=== PATIENT | male | born 2000 | race Caucasian/White ===

== ENCOUNTER 2024-11-16 15:48 | Day surgery (SDC) | payer OTHER, SELFPAY ==
--- NOTE | 2024-11-16 | PATH_ITS ---
[facility] Accession Number: [id number] No. of containers..02 Tissue . 01 Material submitted: . PART A: rectum - SKIN TAG, RECTUM POSTERIOR PART B: rectum - SKIN TAG, RECTUM ANTERIOR . 01 Diagnosis: A. RECTUM, POSTERIOR, SKIN TAG, EXCISION: Fibroepithelial polyp with prominent foreign body-type granulomatous inflammation; please see comment. Negative for dysplasia or malignancy. . B. RECTUM, ANTERIOR, SKIN TAG, EXCISION: Fibroepithelial polyp with prominent foreign body-type granulomatous inflammation; please see comment. Negative for dysplasia or malignancy. MRV 11/21/2024 1450 Local . 01 Comment: The clinical history of a perineal abscess is noted. The histologic findings in these biopsies raise a differential diagnosis including an inflammatory response associated with adjacent abscess, prior procedural site changes, infectious etiologies, reaction to foreign material, and, in the appropriate clinical setting, Crohn's disease. . 01 Electronically signed: . Beto Durham MD, PhD, Pathologist NPI- [id number] . 01 Gross description: . A. Received in formalin with two patient identifiers and 1. Skin tag rectal posterior, is a foss wrinkled fragment of skin measuring 2.1 x 1.2 x 1.4 cm. Inked blue, serially sectioned, and submitted entirely in A1-A2. B. Received in formalin with two patient identifiers and 2. Skin tag rectal anterior, is a foss roughened fragment of skin measuring 1.8 x 0.8 x 0.7 cm. Inked blue, serially sectioned, and submitted entirely in B1-B2. ([id number]) /MRV 11/17/2024 1734 Local . 01 Microscopic: . A. Sections are of a squamous fibroepithelial polyp with a prominent foreign body-type granulomatous inflammatory reaction. A CD68 immunohistochemical stain highlights the cells of interest, consistent with a histiocytic origin. GMS and AFB stains are negative for fungal organisms and acid-fast bacilli, respectively. All control stains show appropriate reactivity. . B. Sections are of a squamous fibroepithelial polyp with a prominent foreign body-type granulomatous inflammatory reaction. A CD68 immunohistochemical stain highlights the cells of interest, consistent with a histiocytic origin. GMS and AFB stains are negative for fungal organisms and acid-fast bacilli, respectively. All control stains show appropriate reactivity. . * This test was developed and the performance characteristics were validated by [employer]. It has not been cleared or approved by the U.S. Food and Drug Administration. . 01 Pathologist provided ICD-10: L91.8 . 01 CPT . 760221, 140395, L64592, 763534, 434937, 947556, 458327 Specimen Comment: A courtesy copy of this report has been sent to [facility] Performed at: [address] [address], [place], [place] [id number] MD Obed Parks MD Phone: [phone]
[2024-11-16 16:02] VITALS: BMI 31.2
[2024-11-16 16:06] VITALS: BP 137/71; PULSE 105; RESP 16; TEMP 37.2; O2SAT 97
[2024-11-16] MEDS: LACTATED RINGERS 1,000 ML 42 ML IV (16:15)
[2024-11-16] MEDS: BUPIVACAINE 0.5% W/ EPI (PF) 30 ML VIAL INJ (17:32)
[2024-11-16] MEDS: BUPIVACAINE LIPOSOME 266 MG/20 ML VIAL INJ (17:32)
--- NOTE | 2024-11-16 17:54 | PM.OP.1 ---
Operative Date/Time/Diagnoses Date of procedure: 11/16/24 Time of procedure: 17:54 Pre-op diagnosis: Supralevator abscess and fistula Post-op diagnosis: same (Posterior anal fissure, left supralevator abscess and fistula, anterior superficial fistulas x2) Procedure & Clinicians Procedure: 1. Cautery of posterior anal fissure 2. Fistulotomy of supralevator, extra sphincteric left-sided anal fistula and supralevator abscess, with placement of seton; fistulectomy of multiple anterior fistulas Same procedure as scheduled: Yes Indications: Perirectal abscess, fistulas and fissure, presenting with pain and tachycardia Surgeon: Kapil Escobar Click Yes if Unassisted: Yes Anesthesia Type: General Operative Notes Findings: 1. Posterior anal fissure 2. Anterior superficial fistulas x2 3. Left-sided supralevator an extra sphincteric fistula Closure Type: not applicable Specimen(s): other (1. Posterior skin tag 2. Anterior skin tag 3. Abscess for culture) Applied: drain(s) (Seton) Estimated Blood Loss (mL): 25 Blood products transfused: none Procedure in detail: Patient was brought to the operating room suite emergently from the office due to pain, redness and inability to perform an exam in the office. Consent was obtained. General anesthesia was induced. Patient was placed in the prone jayla-knife position. The gluteus were taped apart. A total of 50 mL of mixture of Marcaine and Exparel were used to perform perianal block and field block. Serial lubricated anoscope was inserted and the anus was inspected. Bovie electrocautery was used to remove a posterior anal fissure and residual sentinel tag. The base of the fissure was cauterized for hemostasis. A lacrimal duct probe was placed through the left-sided fistula which entered into a large abscess cavity that extended superior levator, but had a secondary opening in the rectum above the sphincters. A vessel loop was used as a seton passed through the rectum and through the fistula tract. The fistula tract was cauterized. The abscess cavity was copiously irrigated. The seton was tied into place with a silk suture. Anterior fistulas were probed and found to be superficial, not extending to the sphincters. Bovie electrocautery was used to just excise these 2 fistula tracts. The cavity was cauterized with Bovie electrocautery. The wounds and rectum was irrigated. A Gel-Foam was placed in the anus. Patient woke was extubated transferred to PACU in stable condition for anticipated same-day discharge. Complications: none Post-operative Condition: stable Disposition: PACU
[2024-11-16 17:56] VITALS: BP 104/67; PULSE 106; RESP 16; TEMP 37.6; O2SAT 97
[2024-11-16 18:01] VITALS: BP 131/92; PULSE 102; RESP 15; O2SAT 98
[2024-11-16 18:06] VITALS: BP 130/90; PULSE 102; RESP 14; O2SAT 99
[2024-11-16 18:11] VITALS: BP 138/90; PULSE 97; RESP 20; TEMP 37.3; O2SAT 96
[2024-11-16] MEDS: OXYCODONE IR 5 MG TABLET PO (18:13)
[2024-11-16 18:18] VITALS: BP 130/92; PULSE 92; RESP 18; TEMP 37.3; O2SAT 97
== END 2024-11-16 18:33 | disposition home or self-care (01) ==
PROVIDERS: Surgery; PCP Family Medicine; Referring Provider Surgery; Visit Provider Surgery
PROC: (CPT 45990; principal; 2024-11-16 16:30)
DX: K61.5 Supralevator abscess (principal); K60.30 Anal fistula, unspecified; K60.2 Anal fissure, unspecified; K64.4 Residual hemorrhoidal skin tags; K62.1 Rectal polyp
CPT/HCPCS: 46280; 87070; 87077; 87186; 87205; 99214; J0666; J1100; J1885; J2405; J2704; J3010

== ENCOUNTER 2024-11-25 11:46 | Emergency (ER) | payer OTHER, SELFPAY ==
[2024-11-25] VITALS (13 sets, daily range): BP systolic 103–112; BP diastolic 51–69; PULSE 71–118; RESP 11–29; TEMP 36.6; O2SAT 92–100; BMI 31.2
--- NOTE | 2024-11-25 11:58 | ED_ITS ---
HPI - Abdominal Pain General Chief Complaint: Abdominal Pain Stated Complaint: abdominal pain Time Seen by Provider: 11/25/24 11:57 History of Present Illness HPI narrative: 23-year-old male history of pilonidal cysts status post surgical correction with banding on 11/16/2024, comes into the ED from home for evaluation of abdominal pain nausea vomiting diarrhea ongoing persistent for several months, states that this was happening prior to his surgery, states it has been healing appropriately, he has not having any issues with this, he comes in today for his abdominal pain has been taking amoxicillin daily for the past month, denies any recent travel no headache visual disturbances chest pain shortness breath fever chills or any other GI/ symptoms at this time. Related Data Home Medications Medication Instructions Recorded Confirmed amoxicillin 500 mg tablet mg PO 11/25/24 Previous Rx's Medication Instructions Recorded docusate calcium 240 mg capsule 240 mg PO BID #60 caps 11/16/24 ondansetron HCl 8 mg tablet 8 mg PO Q8H PRN nausea and 11/16/24 vomiting #30 tabs oxycodone 5 mg tablet 5 mg PO Q6H PRN severe pain (scale 11/16/24 score 7-10) #14 tabs polyethylene glycol 3350 17 17 g PO DAILY #238 grams 11/16/24 gram/dose oral powder (ClearLax) tizanidine 4 mg capsule 4 mg PO Q8H PRN rectal discomfort 11/16/24 #90 caps aluminum-mag hydroxide-simethicone 10 ml PO TID 5 days #150 mL 11/25/24 200 mg-200 mg-20 mg/5 mL oral susp (Maalox Advanced) Allergies Allergy/AdvReac Type Severity Reaction Status Date / Time No Known Drug Allergies Allergy Unverified 11/16/24 15:30 Review of Systems Review of Systems Narrative: General: Denies fever, chills, weight loss HEENT: Denies headache, eye drainage, eye irritation, head trauma, sore throat, voice change Cardiovascular: Denies any chest pain, palpitations, shortness of breath, tachycardia Respiratory: Denies any shortness of breath, cough, wheeze, stridor GI/: Positive abdominal pain, nausea, vomiting, diarrhea, denies bright red blood per rectum, melanotic stools, urinary frequency, urinary retention, dysuria, hematuria MSK: Denies any joint pain, muscle pains, swelling Skin: Denies any rashes, lesions, discoloration Neuro: Denies any headache, lightheadedness, dizziness, fainting, weakness Psych: Denies SI/HI Patient History Medical History (Updated 11/25/24 @ 15:45 by Corby Akers DO) Supralevator abscess Social History marital status: unmarried,single details: Pt. lives with his parents. household members: family occupational status: unemployed Smoking Status: Never smoker alcohol intake: never Smoking Status: Never smoker Exam Narrative Exam Narrative: General: Cooperative, comfortable, well-developed, not in acute distress HEENT: Normocephalic, atraumatic, PERRLA, normal sclera, eyelids normal, Neck: Active full range of motion, atraumatic Chest: Normal to inspection, negative crepitus, no overlying erythema ecchymosis Respiratory: Normal respiratory effort, not in acute respiratory distress, clear to auscultation bilaterally negative cough, wheeze, tachypnea, rhonchi, rales Cardiology: Regular rate rhythm negative gallop, murmur, rubs GI/: Normal to inspection, soft, nonrigid, mild tenderness to palpation diffuse, rectal exam performed, 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 MSK: Full range of active range of motion of all 4 extremities, atraumatic Skin: No rashes lesions noted Neuro: Alert awake oriented x3, moves all 4 extremities spontaneously, cranial nerves intact, able to answer all questions appropriately follows commands appropriately Psych: Cooperative, negative suicidal or homicidal ideations Initial Vital Signs Initial Vital Signs: Vital Signs Temperature 98 F 11/25/24 11:57 Pulse Rate 118 H 11/25/24 11:57 Respiratory Rate 18 11/25/24 11:57 Blood Pressure 112/69 11/25/24 11:57 Pulse Oximetry 99 11/25/24 11:57 Oxygen Delivery Method Room Air 11/25/24 11:57 Course Orders Ordered: ED Orders 11/25/24 12:00 Complete Blood Count AUTO DIFF Stat Comprehensive Metabolic Panel Stat Lipase Stat MAG [Magnesium] Stat 11/25/24 12:01 GI Panel (Film Array) Stat 11/25/24 12:02 CT abdomen pelvis w con Stat Discontinued Medications Morphine Sulfate (Morphine 4 Mg/Ml Inj) 4 mg IV NOW ONE Stop: 11/25/24 12:02 Last Admin: 11/25/24 12:22 Dose: 4 mg Documented By: RB Ondansetron HCl (Ondansetron 4 Mg/2 Ml Inj) 4 mg IV NOW ONE Stop: 11/25/24 12:02 Last Admin: 11/25/24 12:21 Dose: 4 mg Documented By: RB Vital Signs Vital signs: Vital Signs - 8 hr 11/25/24 11:57 11/25/24 12:16 11/25/24 12:37 Temperature 98 F Pulse Rate 118 H 85 85 Respiratory Rate 18 11 L 29 H Blood Pressure 112/69 Pulse Oximetry 99 97 99 Oxygen Delivery Method Room Air 11/25/24 13:00 11/25/24 13:30 11/25/24 13:40 Temperature Pulse Rate 80 76 Respiratory Rate 18 Blood Pressure 109/55 L Pulse Oximetry 96 98 Oxygen Delivery Method 11/25/24 13:40 11/25/24 14:00 11/25/24 14:00 Temperature Pulse Rate 81 77 Respiratory Rate 26 H Blood Pressure 108/55 L Pulse Oximetry 99 99 Oxygen Delivery Method 11/25/24 14:30 11/25/24 14:30 11/25/24 15:21 Temperature Pulse Rate 71 Respiratory Rate 20 22 Blood Pressure 107/51 L Pulse Oximetry 98 Oxygen Delivery Method 11/25/24 15:22 11/25/24 15:22 Temperature Pulse Rate 83 Respiratory Rate 11 L Blood Pressure 108/59 L Pulse Oximetry 92 Oxygen Delivery Method MDM - Abdominal Pain Differential Diagnosis Differential diagnosis: Likely constipation, diverticulitis, gastroenteritis, small bowel obstruction and other (Electrolyte abnormality, urinary tract infection, C diff) Lab Data 11/25/24 12:00 11/25/24 12:00 Labs: Lab Results 11/25/24 Range/Units 12:00 WBC 15.1 H (4.5-11.0) X10^3/uL RBC 4.38 L (4.5-5.9) X10^6/uL Hgb 12.1 L (13.5-17.5) g/dL Hct 37.1 L (41-53) % MCV 84.6 (80-100) fL MCH 27.6 (26-34) PG MCHC 32.6 (30-36) % RDW 13.9 (11.6-14.8) % Plt Count 467 H (150-400) X10^3/uL Neut % (Auto) 78.7 H (50-75) % Lymph % (Auto) 8.5 L (25-40) % [place] % (Auto) 10.0 (3-14) % Eos % (Auto) 2.3 (2-4) % Baso % (Auto) 0.5 (0-2) % Neut # (Auto) 24934 H (8168-3816) /uL Lymph # (Auto) 1300 (7987-6623) /uL [place] # (Auto) 1500 H (0-900) /uL Eos # (Auto) 300 (0-450) /uL Baso # (Auto) 100 (0-100) /uL Sodium 138 (137-145) mmol/L Potassium 3.7 (3.4-5.1) mmol/L Chloride 103 (98-107) mmol/L Carbon Dioxide 26 (22-32) mmol/L BUN 11 (9-20) mg/dL Creatinine 1.27 H (0.66-1.25) mg/dL Estimated GFR > 60 (>60) mL/min BUN/Creatinine Ratio 8.7 (6-22) Glucose 110 H (70-100) mg/dL Calcium 9.6 (8.4-10.2) mg/dL Magnesium 1.9 (1.6-2.3) mg/dL Total Bilirubin 0.9 (0.2-1.3) mg/dL AST 32 (17-59) IU/L ALT 38 (<50) IU/L Alkaline Phosphatase 119 (38-126) U/L Total Protein 8.2 (6.3-8.2) g/dL Albumin 4.2 (3.5-5.0) g/dL Globulin 4.0 (1.7-4.1) g/dL Albumin/Globulin Ratio 1.1 (1.0-2.8) Lipase 72 (23-300) U/L Point of care testing: Urine Dip Bedside Urine Glucose Negative Bedside Urine Bilirubin - Negative Bedside Urine Ketone - Negative Urine Specific [place] 1.000 Bedside Urine Occult Blood - Negative Bedside Urine pH 6.5 Bedside Urine Protein - Negative Bedside Urine Urobilinogen 0.2 Bedside Urine Nitrite - Negative Bedside Urine Leukocytes - Negative Esterase Imaging Data CT scan - abdomen/pelvis: Radiologist's Impression: [address] [address] [address] Scan Report Signed Patient: Joel Kauffman MR#: [id number] : 2000 Acct:[id number] Age/Sex: 23 / M Date of Service: 11/25/24 Loc: ED Accession Number: [id number] Procedure: CT abdomen pelvis w con Ordering Provider: Corby Akers D.O. PROCEDURE: CT ABDOMEN PELVIS W CON INDICATIONS: Lower abdominal pain TECHNIQUE: After the administration of intravenous contrast, axial sections acquired from the lung bases to the pubic symphysis. Coronal and sagittal reformats were performed. For radiation dose reduction, the following was used: automated exposure control, adjustment of mA and/or kV according to patient size. COMPARISON: [facility], CT, CT PELVIS WITH CONTRAST, 10/23/2024, 12:39. FINDINGS: Image quality: Diagnostic. Lower Chest: No significant findings. ABDOMEN: Liver: No solid mass. Gallbladder: No radiopaque gallstones or wall thickening. Biliary ducts: No biliary dilation. Pancreas: No ductal dilation. Spleen: Size is within normal limits. Adrenal Glands: No adrenal nodules. Kidneys and Ureters: No hydronephrosis. No solid mass. No complex renal cystic lesion which requires follow up. Stomach and Bowel: Normal colonic caliber, without significant wall thickening. The appendix is dilated and inflamed with periappendiceal edema suspicious for acute appendicitis, similar prior exam. Additionally, there is wall thickening and pericolonic edema involving the descending and sigmoid colon, increased from the prior exam. There is been interval Seton treatment of a left perianal fistula with suture loop in appropriate position. Peritoneum: No abscess. No free air. Ventral Wall: No significant ventral hernia. Abdominal Nodes: No retroperitoneal or mesenteric adenopathy by size criteria. Vessels: Aorta and inferior vena cava are normal in size. PELVIS: Pelvic Organs: Unremarkable. Bladder: No bladder wall thickening, accounting for underdistention. Pelvic Nodes: No enlarged lymph nodes. Miscellaneous: No inguinal hernias are seen. Bones: No aggressive osseous abnormality. IMPRESSION: Interval seton treatment of left perianal fistula in good position Probable colitis involves the descending and sigmoid colon, slightly increased from prior exam. Persistent appendiceal prominence with periappendiceal edema suspicious for appendicitis, but nevertheless unchanged from the prior MDM Narrative Medical decision making narrative: 23-year-old male history of pilonidal cyst status post rectal surgery correction on 11/16/2024 presents to the emergency department for persistent lower abdominal cramping nausea and vomiting diarrhea since May of 2024. Patient is stating that he is healing well from his surgery but he is having difficulty tolerating the pain from both his rectum and his abdomen. He states his he has been on amoxicillin for the past month daily. Patient had lab work imaging performed here in the emergency department. Patient did have mild leukocytosis at 15, however patient recently had surgery currently on antibiotics having abdominal pain nausea vomiting diarrhea most likely reactive remainder of lab work unremarkable. CT scan showing Interval seton treatment of left perianal fistula in good position, also noted to have persistentappendiceal prominence with periappendiceal edema suspicious for appendicitis,, patient without any tenderness to palpation of the right lower quadrant, did have a discussion with general surgeon Dr. Barlow, who agrees patient most likely not an acute appendicitis given patient's symptoms ongoing persistent for so long as well as CT scan unchanged from prior. Patient was unable to provide stool sample here to test C diff, patient elected to follow up with PCP to have this checked, patient's symptoms more likely colitis, in nature, patient already on Augmentin instructed follow up with his general surgeon for his scheduled appointment as well as GI and PCP in outpatient setting strict return precautions were given he verbalized understanding of this and agrees to being discharged home with outpatient follow up Discharge Plan Departure Patient Disposition: Home Clinical Impression: Colitis Instructions: DI for Colitis Activity Restrictions/Additional Instructions: Please follow up with primary care doctor so that they may order A C diff test Please follow up with your general surgeon for your scheduled appointment Please read the discharge instructions sheet carefully and bring all papers to all doctor follow-up visits, as it may contain information that your doctor may want to see. Disease processes change and evolve, if your symptoms worsen or if you develop any new symptoms that are concerning to you please return for evaluation. Your evaluation today does not show any evidence of any life- threatening/serious illnesses requiring admission to the hospital or surgery. Please follow-up with your doctor for re-evaluation in approximately 1 day. Seek immediate medical attention for any worrisome symptoms. *If you do not have a primary care provider please contact the [facility] Resource line at [phone]. They will ask some questions about your medical history and help get you set up with a doctor in the community. Prescriptions: New alum-mag hydroxide-simeth [Maalox Advanced] 200-200-20 mg/5 mL suspension 10 ml PO TID 5 Days Qty: 150 0RF Rx Instructions: administer between meals and at bedtime No Action tizanidine 4 mg capsule 4 mg PO Q8H PRN (Reason: rectal discomfort) Qty: 90 0RF Rx Instructions: may cut in half if you feel lightheaded or dizzy oxycodone 5 mg tablet 5 mg PO Q6H PRN (Reason: severe pain (scale score 7-10)) Qty: 14 0RF amoxicillin 500 mg Tablet PO ondansetron HCl 8 mg tablet 8 mg PO Q8H PRN (Reason: nausea and vomiting) Qty: 30 0RF docusate calcium 240 mg capsule 240 mg PO BID Qty: 60 0RF polyethylene glycol 3350 [ClearLax] 17 gram/dose powder 17 g PO DAILY Qty: 238 0RF Referrals: Alan Trevino MD [Primary Care Provider] - Stand Alone Forms: Patient Portal/API/Survey
--- NOTE | 2024-11-25 12:02 | DI.CT.S_ITS ---
PROCEDURE: CT ABDOMEN PELVIS W CON INDICATIONS: Lower abdominal pain TECHNIQUE: After the administration of intravenous contrast, axial sections acquired from the lung bases to the pubic symphysis. Coronal and sagittal reformats were performed. For radiation dose reduction, the following was used: automated exposure control, adjustment of mA and/or kV according to patient size. COMPARISON: [facility], CT, CT PELVIS WITH CONTRAST, 10/23/2024, 12:39. FINDINGS: Image quality: Diagnostic. Lower Chest: No significant findings. ABDOMEN: Liver: No solid mass. Gallbladder: No radiopaque gallstones or wall thickening. Biliary ducts: No biliary dilation. Pancreas: No ductal dilation. Spleen: Size is within normal limits. Adrenal Glands: No adrenal nodules. Kidneys and Ureters: No hydronephrosis. No solid mass. No complex renal cystic lesion which requires follow up. Stomach and Bowel: Normal colonic caliber, without significant wall thickening. The appendix is dilated and inflamed with periappendiceal edema suspicious for acute appendicitis, similar prior exam. Additionally, there is wall thickening and pericolonic edema involving the descending and sigmoid colon, increased from the prior exam. There is been interval Seton treatment of a left perianal fistula with suture loop in appropriate position. Peritoneum: No abscess. No free air. Ventral Wall: No significant ventral hernia. Abdominal Nodes: No retroperitoneal or mesenteric adenopathy by size criteria. Vessels: Aorta and inferior vena cava are normal in size. PELVIS: Pelvic Organs: Unremarkable. Bladder: No bladder wall thickening, accounting for underdistention. Pelvic Nodes: No enlarged lymph nodes. Miscellaneous: No inguinal hernias are seen. Bones: No aggressive osseous abnormality. IMPRESSION: Interval seton treatment of left perianal fistula in good position Probable colitis involves the descending and sigmoid colon, slightly increased from prior exam. Persistent appendiceal prominence with periappendiceal edema suspicious for appendicitis, but nevertheless unchanged from the prior Approved by: Fidel Hoskins M.D. on 11/25/2024 at 12:43
[2024-11-25 12:12] LABS: Add Manual Diff / Slide Review NO; Basophils Absolute Auto 100 /uL (0-100); Basophils Percent Auto 0.5 % (0-2); Eosinophils Absolute Auto 300 /uL (0-450); Eosinophils Percent Auto 2.3 % (2-4); Hematocrit 37.1 % (41-53); Hemoglobin 12.1 g/dL (13.5-17.5); Lymphocytes Absolute Auto 1300 /uL (1100-4500); Lymphocytes Percent Auto 8.5 % (25-40); Mean Corpuscular HGB Conc 32.6 % (30-36); Mean Corpuscular Hemoglobin 27.6 PG (26-34); Mean Corpuscular Volume 84.6 fL (80-100); Monocytes Absolute Auto 1500 /uL (0-900); Neutrophils Absolute Auto 11900 /uL (1500-7000); Neutrophils Percent Auto 78.7 % (50-75); Platelet Count 467 X10^3/uL (150-400); Red Blood Cell Count 4.38 X10^6/uL (4.5-5.9); Red Cell Distribution Width 13.9 % (11.6-14.8); White Blood Cell Count 15.1 X10^3/uL (4.5-11.0)
[2024-11-25] MEDS: ONDANSETRON 4 MG/2 ML INJ IV (12:21)
[2024-11-25] MEDS: MORPHINE 4 MG/ML INJ IV (12:22)
[2024-11-25 12:33] LABS: Alanine Aminotransferase 38 IU/L (<50); Albumin 4.2 g/dL (3.5-5.0); Albumin Globulin Ratio 1.1 (1.0-2.8); Alkaline Phosphatase 119 U/L (38-126); Aspartate Aminotransferase 32 IU/L (17-59); BUN Creatinine Ratio 8.7 (6-22); Bilirubin Total 0.9 mg/dL (0.2-1.3); Blood Urea Nitrogen 11 mg/dL (9-20); Calcium 9.6 mg/dL (8.4-10.2); Carbon Dioxide 26 mmol/L (22-32); Chloride 103 mmol/L (98-107); Estimated Glomerular Filt Rate > 60 mL/min (>60); Glucose 110 mg/dL (70-100); HEMOLYSIS < 15 (0-50); Lipase 72 U/L (23-300); Magnesium 1.9 mg/dL (1.6-2.3); Potassium 3.7 mmol/L (3.4-5.1); Sodium 138 mmol/L (137-145); Total Protein 8.2 g/dL (6.3-8.2)
== END 2024-11-25 17:59 | disposition home or self-care (01) ==
PROVIDERS: Emergency Provider Student in an Organized Health Care Education/Training Program; PCP Family Medicine
DX: K52.9 Noninfective gastroenteritis and colitis, unspecified (principal); R11.2 Nausea with vomiting, unspecified
CPT/HCPCS: 36415; 74177; 80053; 81003; 83690; 83735; 85025; 96374; 96375; 99284; J2270; J2405; Q9967

== ENCOUNTER 2024-12-05 10:13 | Emergency (ER) | payer OTHER, SELFPAY ==
[2024-12-05] VITALS (20 sets, daily range): BP systolic 112–134; BP diastolic 61–85; PULSE 80–104; RESP 17–24; TEMP 37.5; O2SAT 96–100; BMI 29.8
--- NOTE | 2024-12-05 10:54 | EKG_ITS ---
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
--- NOTE | 2024-12-05 10:57 | DI.RAD.S_ITS ---
PROCEDURE: XR CHEST 1V INDICATIONS: chest pain TECHNIQUE: One view of the chest was acquired. COMPARISON: None. FINDINGS: Surgical changes and devices: None. Lungs and pleura: Lungs are clear. No pleural effusions or pneumothorax. Mediastinum: Mediastinal contours appear normal. Heart size is normal. Bones and chest wall: No suspicious bony lesions. Overlying soft tissues appear unremarkable. IMPRESSION: No acute pulmonary process. Dictated by: Ct Pina M.D. on 12/05/2024 at 11:07 Approved by: Ct Pina M.D. on 12/05/2024 at 11:10
[2024-12-05 11:15] LABS: Add Manual Diff / Slide Review NO; Basophils Absolute Auto 100 /uL (0-100); Basophils Percent Auto 0.5 % (0-2); Eosinophils Absolute Auto 100 /uL (0-450); Eosinophils Percent Auto 0.7 % (2-4); Hematocrit 34.6 % (41-53); Hemoglobin 11.4 g/dL (13.5-17.5); Lymphocytes Absolute Auto 1100 /uL (1100-4500); Lymphocytes Percent Auto 8.3 % (25-40); Mean Corpuscular Hemoglobin 27.5 PG (26-34); Mean Corpuscular Volume 83.2 fL (80-100); Monocytes Absolute Auto 1700 /uL (0-900); Neutrophils Absolute Auto 10400 /uL (1500-7000); Neutrophils Percent Auto 77.5 % (50-75); Platelet Count 497 X10^3/uL (150-400); Red Blood Cell Count 4.16 X10^6/uL (4.5-5.9); Red Cell Distribution Width 13.8 % (11.6-14.8); White Blood Cell Count 13.4 X10^3/uL (4.5-11.0)
[2024-12-05 11:25] LABS: INR 1.4 (0.9-1.3); Prothrombin Time 15.8 SECONDS (9.4-12.5)
[2024-12-05 11:28] LABS: PTT Partial Thromboplastin Tim 33 SECONDS (25.1-36.5)
[2024-12-05 11:47] LABS: Alanine Aminotransferase 53 IU/L (<50); Albumin 3.9 g/dL (3.5-5.0); Albumin Globulin Ratio 1.1 (1.0-2.8); Alkaline Phosphatase 121 U/L (38-126); Aspartate Aminotransferase 40 IU/L (17-59); BUN Creatinine Ratio 8.3 (6-22); Bilirubin Total 0.8 mg/dL (0.2-1.3); Blood Urea Nitrogen 10 mg/dL (9-20); Calcium 9.2 mg/dL (8.4-10.2); Carbon Dioxide 23 mmol/L (22-32); Chloride 100 mmol/L (98-107); Creatine Kinase 43 U/L (55-170); Estimated Glomerular Filt Rate > 60 mL/min (>60); Globulin 3.7 g/dL (1.7-4.1); Glucose 106 mg/dL (70-100); HEMOLYSIS < 15 (0-50); Lipase 46 U/L (23-300); Magnesium 1.9 mg/dL (1.6-2.3); Potassium 3.8 mmol/L (3.4-5.1); Sodium 136 mmol/L (137-145); Total Protein 7.6 g/dL (6.3-8.2)
[2024-12-05 11:59] LABS: Troponin I < 0.012 ng/mL (0.01-0.034)
[2024-12-05 12:12] LABS: NT-proBNP (BNP-Adult 18+) 38 pg/mL (<125)
[2024-12-05] MEDS: KETOROLAC 30 MG/ML VIAL 15 MG IV (15:36)
[2024-12-05] MEDS: SODIUM CHLORIDE 0.9% 1,000 ML 1000 ML IV (15:36)
--- NOTE | 2024-12-05 15:46 | DI.CT.S_ITS ---
PROCEDURE: CT ABDOMEN PELVIS W CON INDICATIONS: + c diff, worsening abd pain TECHNIQUE: After the administration of intravenous contrast, axial sections acquired from the lung bases to the pubic symphysis. Coronal and sagittal reformats were performed. For radiation dose reduction, the following was used: automated exposure control, adjustment of mA and/or kV according to patient size. COMPARISON: [facility], CT, CT ABDOMEN PELVIS W CON, 11/25/2024, 12:23. FINDINGS: Image quality: Diagnostic. Lower Chest: Dependent atelectasis are seen in posterior aspect of bilateral lung bases. Heart size is normal, no pericardial effusion. ABDOMEN: Liver: No solid mass. Gallbladder: No radiopaque gallstones or wall thickening. Biliary ducts: No biliary dilation. Pancreas: No ductal dilation. Spleen: Size is within normal limits. Adrenal Glands: No adrenal nodules. Kidneys and Ureters: No hydronephrosis. No solid mass. No complex renal cystic lesion which requires follow up. Stomach and Bowel: Normal colonic caliber, without significant wall thickening. Appendix is slightly enlarged and measures 1 cm in diameter. There is mild appendiceal wall thickening and periappendiceal fat stranding concerning for early acute appendicitis best seen on series 4 image 51. No abscess collection. No extra luminal air to suggest perforation. Mild descending colon and sigmoid colon wall thickening with mild pericolonic fat stranding is seen particularly involving mid sigmoid colon concerning for colitis. Peritoneum: No abnormal intraperitoneal fluid. No free air. Ventral Wall: No significant ventral hernia. Abdominal Nodes: No retroperitoneal or mesenteric adenopathy by size criteria. Vessels: Aorta and inferior vena cava are normal in size. PELVIS: Pelvic Organs: Unremarkable. Bladder: No bladder wall thickening, accounting for underdistention. Pelvic Nodes: No enlarged lymph nodes. Miscellaneous: No inguinal hernias are seen. Bones: No aggressive osseous abnormality. IMPRESSION: 1. Finding is concerning for colitis involving sigmoid colon particularly involving mid sigmoid colon. 2. Finding is concerning for early developing acute appendicitis. No abscess collection. No peritoneal free air or free fluid. 3. No other area of abnormal bowel wall thickening. No evidence of bowel obstruction. Dictated by: Pascual Chang M.D. on 12/05/2024 at 16:34 Approved by: Pascual Chang M.D. on 12/05/2024 at 16:48
[2024-12-05 16:31] LABS: Troponin I 0.923 ng/mL (0.01-0.034)
--- NOTE | 2024-12-05 16:41 | EKG_ITS ---
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
[2024-12-05 17:20] LABS: Troponin I < 0.012 ng/mL (0.01-0.034)
--- NOTE | 2024-12-05 17:47 | PC.NURSE ---
Spoke w/ lab: repeated same sample and it was negative.
[2024-12-05] MEDS: PIPERACILLIN/TAZO 4.5 GM in SODIUM CHLORIDE 0.9% 100 ML IV (17:48)
--- NOTE | 2024-12-05 17:54 | PC.NURSE ---
Addendum entered by Tamie Bravo R.N. 12/05/24 17:57: Pt reported pain 05/03 on arrival. Original Note: Pt reports chest pain, sob, fatigue. pt states the chest pain happens when he moves around. Otherwise the pain goes across his lower abdomen. Pt reports diarrhea from c-diff for which he is being treated for. Pt states he also has a drain in his bottom from a cyst. Pt has follow up in a few days for this drain. Drain noted to have serous and serosanguineous fluid draining. Bandage replaced.
--- NOTE | 2024-12-05 17:59 | PM.CALLCOV.1 ---
Call Coverage Note Note Date of Patient Contact: 12/05/24 Time of Patient Contact: 18:00 Narrative of Care Provided: Patient had canceled last week's office visit with me. Patient went to ED for nausea. CT scan showes sigmoid colitis, appendicitis, and some air and fluid anterior to the seton. I am concerned about Crohn's disease. He is currently on PO Vanco for C. diff. I would like him to see a colon and rectal surgeon for further evaluation, as this seems to be too complex, and will likely require treatment beyond what we can offer here. D/W ER physician, that Cipro/Flagyl would be reasonable for the CT findings in the setting of C. diff following prolonged Augmentin prior to incision and drainage.
--- NOTE | 2024-12-05 18:33 | ED.CHESTPAIN ---
HPI - Chest Pain General Chief Complaint: Chest Pain Stated Complaint: per pt has c diff, N/V chest/abd pain, weak Time Seen by Provider: 12/05/24 15:16 History of Present Illness HPI narrative: 23-year-old male with recent courses of oral antibiotics usually Augmentin for perirectal abscess fistula, most recently was treated with surgical debridement by local [facility] general surgeon Dr. Escobar, was due to see Dr. Escobar in clinic recently but did not do so. Patient apparently had recent diagnosis of C diff infection, taking oral vancomycin course. Now with left lower quadrant more so than right lower quadrant discomfort since yesterday, anterior lower abdominal discomfort, different than his recent perirectal discomfort problems. No fevers or chills. Drain from surgical procedure with Dr. Escobar apparently still in place. Related Data Home Medications Medication Instructions Recorded Confirmed amoxicillin 500 mg tablet mg PO 11/25/24 Previous Rx's Medication Instructions Recorded docusate calcium 240 mg capsule 240 mg PO BID #60 caps 11/16/24 ondansetron HCl 8 mg tablet 8 mg PO Q8H PRN nausea and 11/16/24 vomiting #30 tabs oxycodone 5 mg tablet 5 mg PO Q6H PRN severe pain (scale 11/16/24 score 7-10) #14 tabs polyethylene glycol 3350 17 17 g PO DAILY #238 grams 11/16/24 gram/dose oral powder (ClearLax) tizanidine 4 mg capsule 4 mg PO Q8H PRN rectal discomfort 11/16/24 #90 caps loperamide 2 mg capsule 2 mg PO Q6H PRN loose stool #120 11/28/24 caps psyllium husk 3 gram/3 gram oral 17 g PO DAILY #340 grams 11/28/24 powder ciprofloxacin HCl 500 mg tablet 500 mg PO BID 10 days #20 tabs 12/05/24 metronidazole 500 mg tablet 500 mg PO TID #30 tabs 12/05/24 Allergies Allergy/AdvReac Type Severity Reaction Status Date / Time No Known Drug Allergies Allergy Unverified 11/16/24 15:30 Patient History Medical History (Updated 12/05/24 @ 18:56 by Cm Jin MD) Supralevator abscess Social History marital status: unmarried,single details: Pt. lives with his parents. household members: family occupational status: unemployed Smoking Status: Never smoker alcohol intake: never Smoking Status: Never smoker Exam Narrative Exam Narrative: GENERAL: Well-developed patient, in mild distress. HEAD: Atraumatic. Normocephalic. EYES: Pupils equal round and reactive. Extraocular motions intact. No scleral icterus. No injection or drainage. ENT: Nose without bleeding, purulent drainage. Throat without erythema, tonsillar hypertrophy or exudate. Airway patent. NECK: Trachea midline. Non tender CARDIOVASCULAR: Regular rate and rhythm without murmurs, gallops, or rubs. RESPIRATORY: Clear to auscultation. Breath sounds equal bilaterally. No wheezes, rales, or rhonchi. GASTROINTESTINAL: Abdomen soft, non-tender, nondistended. Abdomen with left lower quadrant mild tenderness, no guarding or rebound. Perirectal exam with dressings in place, I could not see but could not see nor palpate red Vincent catheter reported to be still in place from surgery EXTREMITIES: No edema or joint tenderness. BACK: Nontender without deformity or crepitance. No flank tenderness. NEURO: AOx3. Motor functions grossly nonfocal SKIN: No rash or erythema of visible areas Initial Vital Signs Initial Vital Signs: Vital Signs Pulse Rate 92 H 12/05/24 10:55 Respiratory Rate 24 12/05/24 10:55 Pulse Oximetry 100 12/05/24 10:55 Course Orders Ordered: ED Orders 12/05/24 15:41 Troponin I Stat 12/05/24 15:46 CT abdomen pelvis w con Stat 12/05/24 16:47 EKG-12 Lead Stat 12/05/24 16:48 Trop I [Troponin I] Stat Discontinued Medications Aspirin (Aspirin 81 Mg Chew Tab) 324 mg PO NOW ONE Stop: 12/05/24 10:58 Last Admin: 12/05/24 11:22 Dose: Not Given Documented By: USHA Ciprofloxacin (Ciprofloxacin 250 Mg Tablet) 500 mg PO NOW ONE Stop: 12/05/24 18:47 Last Admin: 12/05/24 19:11 Dose: 500 mg Documented By: USHA Sodium Chloride (Normal Saline 0.9%) 1,000 mls @ 1,000 mls/hr IV BOLUS ONE Stop: 12/05/24 16:26 Last Infusion: 12/05/24 16:46 Dose: Infused Documented By: Admin: 12/05/24 15:36 Dose: 1,000 mls/hr Documented By: USHA Piperacillin Sod/Tazobactam (Sod 4.5 gm/ Sodium Chloride) 100 mls @ 200 mls/hr IV NOW ONE Stop: 12/05/24 17:32 Last Infusion: 12/05/24 18:30 Dose: Infused Documented By: Admin: 12/05/24 17:48 Dose: 200 mls/hr Documented By: PATSY Ketorolac Tromethamine (Ketorolac 30 Mg/Ml Vial) 15 mg IV NOW ONE Stop: 12/05/24 15:28 Last Admin: 12/05/24 15:36 Dose: 15 mg Documented By: USHA Metronidazole (Metronidazole 500 Mg Tablet) 500 mg PO NOW ONE Stop: 12/05/24 18:48 Last Admin: 12/05/24 19:11 Dose: 500 mg Documented By: USHA Vital Signs Vital signs: Vital Signs - 8 hr 12/05/24 15:30 12/05/24 15:30 12/05/24 16:00 Temperature Pulse Rate 83 Respiratory Rate 18 Blood Pressure 125/77 114/63 Pulse Oximetry 98 12/05/24 16:00 12/05/24 16:30 12/05/24 17:00 Temperature Pulse Rate 88 95 H 86 Respiratory Rate 20 20 Blood Pressure Pulse Oximetry 98 97 98 12/05/24 17:30 12/05/24 17:50 12/05/24 17:50 Temperature Pulse Rate 81 89 Respiratory Rate 19 20 Blood Pressure 117/72 Pulse Oximetry 98 98 12/05/24 18:00 12/05/24 18:00 12/05/24 18:30 Temperature Pulse Rate 92 H Respiratory Rate 22 Blood Pressure 119/71 118/68 Pulse Oximetry 98 12/05/24 18:30 12/05/24 19:00 12/05/24 19:00 Temperature 99.5 F Pulse Rate 91 H 87 Respiratory Rate 22 21 Blood Pressure 112/61 Pulse Oximetry 99 99 MDM - Chest Pain Lab Data Attestation: I reviewed the patient's lab results. Lab results narrative: White blood cell count 42918, hemoglobin 11.4, platelets adequate. Basic metabolic panel unremarkable. Troponin apparently sent, and then apparently spurious elevated result, recheck with same sample per lab was negative, troponin seem irrelevant to this presentation. 12/05/24 11:04 12/05/24 11:04 Labs: Lab Results 12/05/24 12/05/24 12/05/24 Range/Units 11:04 15:41 16:48 WBC 13.4 H (4.5-11.0) X10^3/uL RBC 4.16 L (4.5-5.9) X10^6/uL Hgb 11.4 L (13.5-17.5) g/dL Hct 34.6 L (41-53) % MCV 83.2 (80-100) fL MCH 27.5 (26-34) PG MCHC 33.0 (30-36) % RDW 13.8 (11.6-14.8) % Plt Count 497 H (150-400) X10^3/uL Neut % (Auto) 77.5 H (50-75) % Lymph % (Auto) 8.3 L (25-40) % [place] % (Auto) 13.0 (3-14) % Eos % (Auto) 0.7 L (2-4) % Baso % (Auto) 0.5 (0-2) % Neut # (Auto) 01889 H (3384-7989) /uL Lymph # (Auto) 1100 (0940-3803) /uL [place] # (Auto) 1700 H (0-900) /uL Eos # (Auto) 100 (0-450) /uL Baso # (Auto) 100 (0-100) /uL PT 15.8 H (9.4-12.5) SECONDS INR 1.4 H (0.9-1.3) APTT 33 (25.1-36.5) SECONDS Sodium 136 L (137-145) mmol/L Potassium 3.8 (3.4-5.1) mmol/L Chloride 100 (98-107) mmol/L Carbon Dioxide 23 (22-32) mmol/L BUN 10 (9-20) mg/dL Creatinine 1.21 (0.66-1.25) mg/dL Estimated GFR > 60 (>60) mL/min BUN/Creatinine Ratio 8.3 (6-22) Glucose 106 H (70-100) mg/dL Calcium 9.2 (8.4-10.2) mg/dL Magnesium 1.9 (1.6-2.3) mg/dL Total Bilirubin 0.8 (0.2-1.3) mg/dL AST 40 (17-59) IU/L ALT 53 H (<50) IU/L Alkaline Phosphatase 121 (38-126) U/L Total Creatine Kinase 43 L (55-170) U/L Troponin I < 0.012 0.923 H* < 0.012 (0.01-0.034) ng/mL NT-Pro-B Natriuret Pep 38 (<125) pg/mL Total Protein 7.6 (6.3-8.2) g/dL Albumin 3.9 (3.5-5.0) g/dL Globulin 3.7 (1.7-4.1) g/dL Albumin/Globulin Ratio 1.1 (1.0-2.8) Lipase 46 (23-300) U/L ECG Data Attestation: I personally reviewed and interpreted this ECG as follows: Interpretation: Normal sinus rhythm with rate of 86. No obvious ST segment elevation or depression changes. T-wave inversions lead 3 noted upright in leads 2 and F. [place] 172, QRS 86, QTC 461. MDM Narrative Medical decision making narrative: 27-year-old male has recent exposure to antibiotics due to perirectal abscess/fistula infection problems, status post debridement drainage in drain placement with local surgery Dr. Escobar, subsequent recent diagnosis of C diff infection taking oral vancomycin. Now with left lower quadrant more so than right lower quadrant discomfort since yesterday. No nausea or vomiting. Afebrile on triage, sirs screen negative. Has tenderness left lower quadrant, not really in the right lower quadrant. On posterior perirectal exam there are bandages carefully removed no active bleeding, could not see reported catheter drain that had been placed. Labs pending. CT abdomen and pelvis ordered. CT Abdomen Pelvis shows focal left mid sigmoid colitis and possible early acute appendicitis changes. See radiology report. Case discussed with Dr Escobar general surgery who knows patient, reviewed CT scan himself. He does not believe there are changes of acute appendicitis, but focal uncomplicated sigmoid colitis changes noted, he advises oral antibiotic outpatient course, not Augmentin, but to use Cipro/Flagyl, ten day courses sent to his pharmacy. He also believes the drainage perirectal catheter is in position, can see patient in folllow-up for this as planned. Home with mother. Return precautions discussed. Discharge Plan Departure Patient Disposition: Home Clinical Impression: Colitis Instructions: DI for Colitis Activity Restrictions/Additional Instructions: Mr. Kauffman, You have had numerous oral antibiotic courses for perirectal infection problems, including recent courses of Augmentin, and drainage procedure by local general surgeon Dr. Escobar, with drainage catheter still in place, now with lower abdominal anterior discomfort. Tenderness seemed to be more in the left lower quadrant than in the right on examination. On posterior perirectal examination you had some dried blood on pads, I could not see the catheter that was reportedly still in place. CT abdomen and pelvis was performed, no perirectal large fluid collection was described, however there was clinical concern by the radiologist about possible early appendicitis and also mentioned of focal sigmoid left-sided area of colitis, but no bowel obstruction or any abscess formation. Discussed case with your general surgeon Dr. Escobar, who looked at the CT scan results himself, did not think there was appendicitis changes present. He was concerned about the focal colitis change, and advised a course of oral antibiotics for this finding, not to be Augmentin that you have been taking, but advice ciprofloxacin and Flagyl course of antibiotics. You had recent diagnosis of C diff infection as well, this is usually not quite so focal, surgery was concerned that this might be some other form of colitis. Consider continuing your vancomycin oral course. Prescription sent to your pharmacy for further ciprofloxacin and Flagyl oral antibiotic course. Did not drink any alcohol with the use of Flagyl, as this can induce vomiting while on Flagyl. Take antibiotics as directed. Follow up with Dr. Escobar for the perirectal concerns, and possible drainage catheter removal if needed. You had follow up with your regular doctor tomorrow. Dr. Escobar of general surgery suggested referral in follow up to colorectal specialist, perhaps your primary care doctor can facilitate that referral tomorrow during your follow up appointment. Return earlier to this/nearest emergency department for any change worsening symptoms or any concerns prior. Thank you for allowing our team to take care of you today. Prescriptions: New ciprofloxacin HCl 500 mg tablet 500 mg PO BID 10 Days Qty: 20 0RF metronidazole 500 mg tablet 500 mg PO TID Qty: 30 0RF No Action psyllium husk 3 gram/3 gram powder 17 g PO DAILY Qty: 340 11RF loperamide 2 mg capsule 2 mg PO Q6H PRN (Reason: loose stool) Qty: 120 0RF tizanidine 4 mg capsule 4 mg PO Q8H PRN (Reason: rectal discomfort) Qty: 90 0RF Rx Instructions: may cut in half if you feel lightheaded or dizzy oxycodone 5 mg tablet 5 mg PO Q6H PRN (Reason: severe pain (scale score 7-10)) Qty: 14 0RF amoxicillin 500 mg Tablet PO ondansetron HCl 8 mg tablet 8 mg PO Q8H PRN (Reason: nausea and vomiting) Qty: 30 0RF docusate calcium 240 mg capsule 240 mg PO BID Qty: 60 0RF polyethylene glycol 3350 [ClearLax] 17 gram/dose powder 17 g PO DAILY Qty: 238 0RF Referrals: Alan Trevino MD [Primary Care Provider] - Stand Alone Forms: Patient Portal/API/Survey
[2024-12-05] MEDS: CIPROFLOXACIN 250 MG TABLET 500 MG PO (19:11)
[2024-12-05] MEDS: metroNIDAZOLE 500 MG TABLET PO (19:11)
--- NOTE | 2024-12-05 19:22 | PC.NURSE ---
pt reports abd pain has gotten better. States he has been cautious of what he eats and drinks due to diarrhea. Pt shaky; states he has not eaten or drinken much.
--- NOTE | 2024-12-05 19:23 | CM.MNRNOTE ---
Pt eating and drinking (apple juice and rachell crackers)
== END 2024-12-05 19:26 | disposition home or self-care (01) ==
PROVIDERS: Emergency Provider Emergency Medicine; PCP Family Medicine
DX: K52.9 Noninfective gastroenteritis and colitis, unspecified (principal); Z98.890 Other specified postprocedural states; Z86.19 Personal history of other infectious and parasitic diseases; Z87.19 Personal history of other diseases of the digestive system
CPT/HCPCS: 36415; 71045; 74177; 80053; 82550; 83690; 83735; 83880; 84484; 85025; 85610; 85730; 93005; 99284; J1885; J2543; Q9967

== ENCOUNTER 2024-12-06 15:05 | Inpatient (IN) | payer OTHER, SELFPAY ==
[2024-12-06 15:42] VITALS: BMI 28.8
[2024-12-06 15:46] LABS: Add Manual Diff / Slide Review NO; Basophils Absolute Auto 0 /uL (0-100); Basophils Percent Auto 0.4 % (0-2); Eosinophils Absolute Auto 200 /uL (0-450); Eosinophils Percent Auto 1.4 % (2-4); Hemoglobin 10.7 g/dL (13.5-17.5); Lymphocytes Absolute Auto 1400 /uL (1100-4500); Lymphocytes Percent Auto 12.7 % (25-40); Mean Corpuscular HGB Conc 32.4 % (30-36); Mean Corpuscular Volume 83.4 fL (80-100); Monocytes Absolute Auto 1600 /uL (0-900); Neutrophils Absolute Auto 8000 /uL (1500-7000); Neutrophils Percent Auto 71.5 % (50-75); Platelet Count 465 X10^3/uL (150-400); Red Blood Cell Count 3.96 X10^6/uL (4.5-5.9); White Blood Cell Count 11.2 X10^3/uL (4.5-11.0)
[2024-12-06] MEDS: SODIUM CHLORIDE 0.9% 1,000 ML 1000 ML IV (15:46)
[2024-12-06] MEDS: MORPHINE 2 MG/ML INJ 1 MG IV ×3 (15:46→23:19)
[2024-12-06 15:57] LABS: Alanine Aminotransferase 57 IU/L (<50); Albumin 3.5 g/dL (3.5-5.0); Alkaline Phosphatase 111 U/L (38-126); Aspartate Aminotransferase 42 IU/L (17-59); BUN Creatinine Ratio 6.8 (6-22); Bilirubin Total 0.5 mg/dL (0.2-1.3); Blood Urea Nitrogen 8 mg/dL (9-20); Calcium 8.5 mg/dL (8.4-10.2); Carbon Dioxide 29 mmol/L (22-32); Chloride 103 mmol/L (98-107); Estimated Glomerular Filt Rate > 60 mL/min (>60); Globulin 3.6 g/dL (1.7-4.1); Glucose 115 mg/dL (70-100); HEMOLYSIS < 15 (0-50); Potassium 3.9 mmol/L (3.4-5.1); Sodium 138 mmol/L (137-145); Total Protein 7.1 g/dL (6.3-8.2)
--- NOTE | 2024-12-06 16:02 | PC.NURSE ---
IV fluid bolus started per orders, IV morphine given for pain of 7 and RN will continue fluids NS@150 after bolus is complete per orders. the pt appears to be comfortable or atleast tolerating pain at this time.
[2024-12-06 16:03] LABS: Erythrocyte Sedimentation Rate 89 MM/HR (0-15)
[2024-12-06] MEDS: SODIUM CHLORIDE 0.9% 1,000 ML 150 ML IV ×2 (17:20→23:20)
[2024-12-06 17:28] VITALS: BP 119/69; PULSE 89; RESP 14; TEMP 36.3; O2SAT 95
--- NOTE | 2024-12-06 17:37 | P.HP_ITS ---
History of Present Illness History of Present Illness Date Patient Seen: 12/06/24 Time Patient Seen: 17:38 Date of Onset of Symptoms: 11/19/24 Chief complaint: Abd Pain Narrative: Patient is a 23-year-old male with history of previous surgery for fistula on the of last month. Who presents with abdominal pain. Patient has a long history of issues had severe pain for the last several weeks if not months was seen in my clinic and clearly was not specifically normal. There was no other change. Did not look like hemorrhoids which was what patient was looking and thinking. Was referred to surgeons who did a evaluation and had a perirectal abscess with fistula. Had drain placed. Patient was feeling better and then started getting abdominal pain with diarrhea. C diff was positive and patient was treated with vancomycin. [place] better for a few days and then got worse. Continues with abdominal pain diffusely no is not able to eat not throwing up but nauseated. Having frequent bowel movements. No just recently started having blood. He was seen last night in the emergency room it is felt to be colitis he was started on Cipro and Flagyl and just has not been able to do well. Dehydrated. Urinating some. But frequent bowel movements. Is on day 7 of his vancomycin. With no other changes. Patient has a history of hemorrhoid surgery in the 1 year ago which seemed to be good but started having these issues recently. Otherwise healthy male with no major issue. He has had no fevers chills, abdominal pain is pretty severe diffuse maybe worse in the lower quadrants. Has had no hematemesis. Does have a family history of grandfather with unknown inflammatory bowel disease. Otherwise no change. No urinary pain or change [facility] Medical History Supralevator abscess Social History marital status: unmarried,single details: Pt. lives with his parents. household members: family occupational status: unemployed Smoking Status: Never smoker alcohol intake: never Meds Home Medications and Allergies Home Medications Medication Instructions Recorded Confirmed Type docusate calcium 240 mg capsule 240 mg PO BID #60 caps 11/16/24 12/06/24 Rx ondansetron HCl 8 mg tablet 8 mg PO Q8H PRN nausea and 11/16/24 12/06/24 Rx vomiting #30 tabs oxycodone 5 mg tablet 5 mg PO Q6H PRN severe pain (scale 11/16/24 12/06/24 Rx score 7-10) #14 tabs polyethylene glycol 3350 17 17 g PO DAILY #238 grams 11/16/24 12/06/24 Rx gram/dose oral powder (ClearLax) tizanidine 4 mg capsule 4 mg PO Q8H PRN rectal discomfort 11/16/24 12/06/24 Rx #90 caps loperamide 2 mg capsule 2 mg PO Q6H PRN loose stool #120 11/28/24 12/06/24 Rx caps psyllium husk 3 gram/3 gram oral 17 g PO DAILY #340 grams 11/28/24 12/06/24 Rx powder ciprofloxacin HCl 500 mg tablet 500 mg PO BID 10 days #20 tabs 12/05/24 12/06/24 Rx metronidazole 500 mg tablet 500 mg PO TID #30 tabs 12/05/24 12/06/24 Rx Allergies Allergy/AdvReac Type Severity Reaction Status Date / Time No Known Drug Allergies Allergy Unverified 11/16/24 15:30 Review of Systems Review of Systems Narrative: Negative Exam Vital Signs (past 8 hours): - 12/06/24 17:28 Temperature 97.4 F L Pulse Rate 89 Respiratory Rate 14 Blood Pressure 119/69 Pulse Oximetry 95 Oxygen Flow Rate 0 Oxygen Flow Rate 0 Narrative Exam Narrative: Alert male moving slowly holding abdomen in no acute distress. Mucous membranes are dry. Neck supple without adenopathy. Lungs are clear heart is regular rate and rhythm abdomen soft positive bowel sounds diffusely tender worse in the left lower quadrant right lower quadrant no rebound or guarding. No masses noted extremities without cyanosis clubbing edema. Skin is slightly dry Objective Labs 12/06/24 15:34 12/06/24 15:34 Labs: Laboratory Results - last 24 hr 12/06/24 15:34 WBC 11.2 H RBC 3.96 L Hgb 10.7 L Hct 33.0 L MCV 83.4 MCH 27.0 MCHC 32.4 RDW 14.0 Plt Count 465 H Neut % (Auto) 71.5 Lymph % (Auto) 12.7 L [place] % (Auto) 14.0 Eos % (Auto) 1.4 L Baso % (Auto) 0.4 Neut # (Auto) 8000 H Lymph # (Auto) 1400 [place] # (Auto) 1600 H Eos # (Auto) 200 Baso # (Auto) 0 ESR 89 H Sodium 138 Potassium 3.9 Chloride 103 Carbon Dioxide 29 BUN 8 L Creatinine 1.18 Estimated GFR > 60 BUN/Creatinine Ratio 6.8 Glucose 115 H Calcium 8.5 Total Bilirubin 0.5 AST 42 ALT 57 H Alkaline Phosphatase 111 Total Protein 7.1 Albumin 3.5 Globulin 3.6 Albumin/Globulin Ratio 1.0 Assessment & Plan Assessment & Plan narrative: Abdominal pain. Question is whether or not the patient having fistula was and colitis is developing possible Crohn's disease given it was seems to be both left and right side of the colon. This all could be from C diff so we need to recheck C diff if negative concern is for inflammatory bowel disease. Patient does have a mild leukocytosis but clearly not a surgical abdomen. Did discuss with Dr. Carbajal who feels as if he does not want to do a colonoscopy because of prep would be too much. We discussed this. Certainly that would be diagnostic in some ways. 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 If we can get him settled down. Will keep it clear liquids for diet History of C diff. Rechecked today. Continue vancomycin. Follow up a.m.. Hopefully we will no at that time. History of fistula. Will continue antibiotics started yesterday in the emergency room although this has high risk for increasing risk of recurrent C diff. but recommendation from surgeon. Dehydration. Moderate to severe. Unable to catch up. Will give bolus and run at 1:50 a.m. of normal saline through the night and then hopefully can cut back tomorrow. Code status full DVT prophylaxis Lovenox Disposition. Patient with pretty significant disease if C diff is negative will add IV steroids and see if we can get him settled down so he least can eat. Will see how things go. Re-evaluate in a.m. Time-Based Coding :: [TOTAL MINUTES] spent with patient and on the chart (including review of chart, obtaining history, exam, reviewing outside data, placing orders, documenting exam and treatment plan, and counseling patient) on [DATE]. Quality VTE Deep Vein Thrombosis/Pulmonary Embolism Present on Admission: No
[2024-12-06 20:00] VITALS: BP 116/51; PULSE 87; RESP 17; TEMP 38.3; O2SAT 98
[2024-12-06 20:41] VITALS: TEMP 38.3
[2024-12-06] MEDS: ACETAMINOPHEN 325 MG TABLET 650 MG PO (20:41)
[2024-12-06] MEDS: DOCUSATE 100 MG CAPSULE 200 MG PO (20:42)
[2024-12-06] MEDS: ONDANSETRON 4 MG/2 ML INJ IV (20:49)
[2024-12-06 21:47] VITALS: TEMP 38.2
[2024-12-06 22:14] LABS: Clostridium Difficile Tox PCR Positive for C. diff (Negative)
[2024-12-06] MEDS: LOPERAMIDE 2 MG CAPSULE PO (23:19)
[2024-12-07 06:26] LABS: Add Manual Diff / Slide Review NO; Basophils Absolute Auto 0 /uL (0-100); Basophils Percent Auto 0.3 % (0-2); Eosinophils Absolute Auto 100 /uL (0-450); Eosinophils Percent Auto 0.9 % (2-4); Lymphocytes Absolute Auto 1300 /uL (1100-4500); Lymphocytes Percent Auto 10.2 % (25-40); Mean Corpuscular HGB Conc 32.3 % (30-36); Mean Corpuscular Hemoglobin 27.3 PG (26-34); Mean Corpuscular Volume 84.6 fL (80-100); Monocytes Absolute Auto 1700 /uL (0-900); Monocytes Percent Auto 13.4 % (3-14); Neutrophils Absolute Auto 9600 /uL (1500-7000); Neutrophils Percent Auto 75.2 % (50-75); Platelet Count 441 X10^3/uL (150-400); Red Blood Cell Count 3.67 X10^6/uL (4.5-5.9); Red Cell Distribution Width 14.3 % (11.6-14.8); White Blood Cell Count 12.7 X10^3/uL (4.5-11.0)
[2024-12-07 06:46] LABS: Alanine Aminotransferase 40 IU/L (<50); Alkaline Phosphatase 92 U/L (38-126); Aspartate Aminotransferase 26 IU/L (17-59); BUN Creatinine Ratio 4.7 (6-22); Bilirubin Total 0.5 mg/dL (0.2-1.3); Blood Urea Nitrogen 5 mg/dL (9-20); Calcium 8.4 mg/dL (8.4-10.2); Carbon Dioxide 23 mmol/L (22-32); Chloride 107 mmol/L (98-107); Estimated Glomerular Filt Rate > 60 mL/min (>60); Globulin 3.1 g/dL (1.7-4.1); Glucose 94 mg/dL (70-100); HEMOLYSIS < 15 (0-50); Potassium 4.3 mmol/L (3.4-5.1); Sodium 139 mmol/L (137-145); Total Protein 6.1 g/dL (6.3-8.2)
[2024-12-07] MEDS: ONDANSETRON 4 MG/2 ML INJ IV (06:48)
[2024-12-07] MEDS: MORPHINE 2 MG/ML INJ 1 MG IV (06:48)
[2024-12-07 07:16] LABS: Appearance Urine UA CLEAR; Bilirubin Urine UA NEGATIVE (NEGATIVE); Color Urine UA YELLOW; Glucose Urine UA NEGATIVE (Negative); Ketones Urine UA 2+ (NEGATIVE); Leukocyte Esterase Urine UA NEGATIVE (NEGATIVE); Nitrite Urine UA NEGATIVE (Negative); Occult Blood Urine UA NEGATIVE (Negative); Protein Urine UA NEGATIVE (Negative); Urobilinogen Urine UA 0.2 E.U./dL (0.2); pH Urine UA 5.5 (4.5-8.0)
[2024-12-07 07:23] LABS: Bacteria Urine Occasional (0-1); Culture Indicated Urine Cult Not Indicated; RBC Urine 0-1/HPF (0-5/HPF); Squamous Epithelial Cell Urine 0-1 /HPF (0-5/HPF); Urine Volume 10mL (spun); WBC Urine 0-1/HPF (0-5/HPF)
[2024-12-07 08:00] VITALS: BP 129/70; PULSE 93; RESP 14; TEMP 37.4; O2SAT 96
--- NOTE | 2024-12-07 08:29 | P.PN_ITS ---
Subjective Subjective Date Patient Seen: 12/07/24 Time Patient Seen: 08:30 Interval history: Patient seen for follow-up of abdominal pain diarrhea colitis. Patient with persistent pain. Not getting adequate pain control. Still having diarrhea. No fevers no chills. No real change. Been having a little bit of trouble urinating. Feels like he does get it out completely but it takes time. Exam Vital Signs (past 8 hours): Oxygen Delivery Method Room Air Oxygen Flow Rate 0 Narrative Exam Narrative: Alert male in no acute distress. Lying in bed. Lungs clear heart regular rate and rhythm abdomen flat soft positive bowel sounds continue diffuse tenderness no rebound guarding Objective Labs 12/07/24 06:00 12/07/24 06:00 Labs: Laboratory Results - last 24 hr 12/06/24 12/06/24 12/07/24 15:34 21:08 06:00 WBC 11.2 H 12.7 H RBC 3.96 L 3.67 L Hgb 10.7 L 10.0 L Hct 33.0 L 31.0 L MCV 83.4 84.6 MCH 27.0 27.3 MCHC 32.4 32.3 RDW 14.0 14.3 Plt Count 465 H 441 H Neut % (Auto) 71.5 75.2 H Lymph % (Auto) 12.7 L 10.2 L [place] % (Auto) 14.0 13.4 Eos % (Auto) 1.4 L 0.9 L Baso % (Auto) 0.4 0.3 Neut # (Auto) 8000 H 9600 H Lymph # (Auto) 1400 1300 [place] # (Auto) 1600 H 1700 H Eos # (Auto) 200 100 Baso # (Auto) 0 0 ESR 89 H Sodium 138 139 Potassium 3.9 4.3 Chloride 103 107 Carbon Dioxide 29 23 BUN 8 L 5 L Creatinine 1.18 1.07 Estimated GFR > 60 > 60 BUN/Creatinine Ratio 6.8 4.7 L Glucose 115 H 94 Calcium 8.5 8.4 Total Bilirubin 0.5 0.5 AST 42 26 ALT 57 H 40 Alkaline Phosphatase 111 92 Total Protein 7.1 6.1 L Albumin 3.5 3.0 L Globulin 3.6 3.1 Albumin/Globulin Ratio 1.0 1.0 Urine Color Urine Appearance Urine pH Ur Specific [place] Urine Protein Urine Glucose (UA) Urine Ketones Urine Occult Blood Urine Nitrate Urine Bilirubin Urine Urobilinogen Ur Leukocyte Esterase Urine RBC Urine WBC Ur Squamous Epith Cells Urine Bacteria Ur Culture Indicated? Vol Urine Centrifuged C. difficile Tox (PCR) Positive for c. diff H 12/07/24 06:45 WBC RBC Hgb Hct MCV MCH MCHC RDW Plt Count Neut % (Auto) Lymph % (Auto) [place] % (Auto) Eos % (Auto) Baso % (Auto) Neut # (Auto) Lymph # (Auto) [place] # (Auto) Eos # (Auto) Baso # (Auto) ESR Sodium Potassium Chloride Carbon Dioxide BUN Creatinine Estimated GFR BUN/Creatinine Ratio Glucose Calcium Total Bilirubin AST ALT Alkaline Phosphatase Total Protein Albumin Globulin Albumin/Globulin Ratio Urine Color Yellow Urine Appearance Clear Urine pH 5.5 Ur Specific [place] 1.020 Urine Protein Negative Urine Glucose (UA) Negative Urine Ketones 2+ H Urine Occult Blood Negative Urine Nitrate Negative Urine Bilirubin Negative Urine Urobilinogen 0.2 Ur Leukocyte Esterase Negative Urine RBC 0-1/hpf Urine WBC 0-1/hpf Ur Squamous Epith Cells 0-1 /hpf Urine Bacteria Occasional (0-1) Ur Culture Indicated? Cult not indicated Vol Urine Centrifuged 10ml (spun) C. difficile Tox (PCR) [facility] Medical History Supralevator abscess Social History marital status: unmarried,single details: Pt. lives with his parents. household members: family occupational status: unemployed Smoking Status: Never smoker alcohol intake: never Assessment & Plan Assessment & Plan narrative: Abdominal pain. C diff is positive question whether this is all related to C diff fidaxamicin after discussing with pharmacy. Need to discuss with surgery about antibiotic use if we can stay away from it that would be good. Still not ruling out inflammatory bowel disease. Will need colonoscopy at some time during this time. Certainly fits with issues going on with his anal area. Will discuss with a r collections rep today. Will see how things go. Hopefully his abdominal pain improves. If it does not will need to add steroids consider this inflammatory bowel disease. Will increase morphine today C difficile. Will start new med antibiotic. As above. Follow. History of fistula. Will discuss with surgeon about need for antibiotics. If we can get away with it it would be fantastic. Dehydration. Improved. Will slow IV today. Probably discontinue tomorrow. Code status full. DVT prophylaxis Lovenox Disposition. Will be here a few more days. Will discuss with a r collections rep plan and follow from there. Greater than 55 minutes spent with patient chart consult and charting. Time-Based Coding :: [TOTAL MINUTES] spent with patient and on the chart (including review of chart, obtaining history, exam, reviewing outside data, placing orders, documenting exam and treatment plan, and counseling patient) on [DATE]. Quality VTE Deep Vein Thrombosis/Pulmonary Embolism Present on Admission: No
[2024-12-07] MEDS: MORPHINE 2 MG/ML INJ IV ×3 (08:58→19:59)
[2024-12-07] MEDS: LACTOBACILLUS ACIDOPHILUS TABLET 1 EACH PO ×3 (08:58→17:13)
[2024-12-07] MEDS: ENOXAPARIN 40 MG/0.4 ML SYRINGE SUBCUT (08:58)
[2024-12-07] MEDS: FIDAXOMICIN 200 MG TABLET PO ×2 (08:58→20:02)
[2024-12-07] MEDS: LOPERAMIDE 2 MG CAPSULE PO ×2 (09:04→19:59)
--- NOTE | 2024-12-07 10:23 | DIET.CONS ---
Dietary Consultation Note Admission Date: 12/06/2024 15:05 Assessment: 23 y M admitted for abdominal pain/c diff positive and dehydration. Hx of fistula. Dietitian screened for low MNA. Met with pt at bedside. Reports ongoing abd pain and diarrhea and nausea that started in May 2024. Was 250 lb at that time. Now 200 lb. Started having more severe abd pain around Oct this year. Was dx with supralevator abscess and had surgery 11/16/24. Since then continues to have severe abd pain and diarrhea. Has been unable to eat any significant PO intakes. Describes trying to take bites of food, but unable to actually eat any food. Clear liquids breakfast tray untouched at bedside. Nutrition focused physical exam performed: Mild loss temporalis. Assessed temples, deltoid, interosseous, and buccal and orbital fat pads and triceps. Ht: 177.8 cm Wt: 91 kg BMI: 28.8 UBW: 250 lb (113.64 kg) per pt in May 2024 (-20% weight loss within 6 months, severe) 98.883 kg on 11/16/24 (-8% weight loss within 1 month, severe) Last BM: 12/07/24 (12/07/24 06:00) MNA: 9 Hunter Score: 23 Diet: 12/06/24 Breakfast Clear Liquid Diet Diet Modifications: Labs: RBC 3.67 X10^6/uL (4.5-5.9) L 12/07/24 06:00 Hgb 10.0 g/dL (13.5-17.5) L 12/07/24 06:00 Hct 31.0 % (41-53) L 12/07/24 06:00 Creatinine 1.07 mg/dL (0.66-1.25) 12/07/24 06:00 Nutrition Diagnosis: Severe acute Protein Calorie Malnutrition r/t alterations in gastrointestinal tract/structure as evidenced by 20% weight loss within 6 months and 8% weight loss within 1 month (severe), mild muscle wasting (temporalis), <50% of estimated energy needs for 3 weeks per diet recall (severe), C. difficile positive and hx of perirectal abscess with fistula, symptoms of ongoing severe abdominal pain and diarrhea. Interventions: 1 On CLD but unable to tolerate at this time. Plan of care unfolding with surgery and contractor broomcorn threshing per provider note. Will monitor for diet advancements. EER: [id number] kcals (20-23 kcals/kg per BMI) 90-105 g protein (20% kcals vs 1.25 g/kg Adjusted IBW per PCM) Electronically Signed by: Nela Block 12/07/24 10:23 Clinical Dietitian [address] [address]
[2024-12-07] MEDS: SODIUM CHLORIDE 0.9% 1,000 ML 75 ML IV (13:02)
--- NOTE | 2024-12-07 16:32 | PC.NURSE ---
Addendum entered by Lilibeth Hawkins R.N. 12/07/24 16:34: the pt said that his pain better with the morphine and the imodium if he takes it regularly, and said it seems to be helpful at night when his symptoms have usually been worse so he would like to continue taking the imodium as well as the morphine as needed. Original Note: pt is continuing to have pain with bowel movements, mostly soft or liquid diarrhea. Pt was able to pee and states that he felt like it was a large amount of output and feels like he is able to empty his bladder however it is difficult to start and he said he has to really concentrate to go pee.
[2024-12-07 22:00] VITALS: O2SAT 95
[2024-12-07 23:00] VITALS: BP 135/72; PULSE 91; RESP 18; TEMP 37.1; O2SAT 95
[2024-12-08] MEDS: TIZANIDINE 4 MG TABLET PO ×3 (00:50→20:55)
[2024-12-08] MEDS: ONDANSETRON 4 MG/2 ML INJ IV ×3 (00:50→18:05)
[2024-12-08] MEDS: MORPHINE 2 MG/ML INJ IV ×5 (00:51→20:53)
[2024-12-08] MEDS: SODIUM CHLORIDE 0.9% 1,000 ML 75 ML IV (00:58)
[2024-12-08 07:01] LABS: Add Manual Diff / Slide Review NO; Basophils Absolute Auto 0 /uL (0-100); Basophils Percent Auto 0.2 % (0-2); Eosinophils Absolute Auto 200 /uL (0-450); Eosinophils Percent Auto 1.3 % (2-4); Hematocrit 24.8 % (41-53); Hemoglobin 8.1 g/dL (13.5-17.5); Lymphocytes Absolute Auto 1600 /uL (1100-4500); Lymphocytes Percent Auto 12.7 % (25-40); Mean Corpuscular HGB Conc 32.5 % (30-36); Mean Corpuscular Hemoglobin 27.2 PG (26-34); Mean Corpuscular Volume 83.8 fL (80-100); Monocytes Absolute Auto 1700 /uL (0-900); Monocytes Percent Auto 13.7 % (3-14); Neutrophils Absolute Auto 8900 /uL (1500-7000); Neutrophils Percent Auto 72.1 % (50-75); Platelet Count 456 X10^3/uL (150-400); Red Blood Cell Count 2.96 X10^6/uL (4.5-5.9); White Blood Cell Count 12.3 X10^3/uL (4.5-11.0)
[2024-12-08 07:16] LABS: Alanine Aminotransferase 30 IU/L (<50); Albumin 2.8 g/dL (3.5-5.0); Albumin Globulin Ratio 0.9 (1.0-2.8); Alkaline Phosphatase 86 U/L (38-126); Aspartate Aminotransferase 20 IU/L (17-59); BUN Creatinine Ratio 3.2 (6-22); Bilirubin Total 0.4 mg/dL (0.2-1.3); Blood Urea Nitrogen 3 mg/dL (9-20); Calcium 8.6 mg/dL (8.4-10.2); Carbon Dioxide 27 mmol/L (22-32); Chloride 107 mmol/L (98-107); Estimated Glomerular Filt Rate > 60 mL/min (>60); Globulin 3.2 g/dL (1.7-4.1); Glucose 95 mg/dL (70-100); HEMOLYSIS < 15 (0-50); Sodium 138 mmol/L (137-145)
[2024-12-08 07:19] LABS: Erythrocyte Sedimentation Rate 106 MM/HR (0-15)
[2024-12-08 07:30] LABS: C-Reactive Protein Quant 19.1 mg/dL (<1.0)
[2024-12-08 07:35] VITALS: O2SAT 98
--- NOTE | 2024-12-08 08:01 | PM.PN.1 ---
Subjective Subjective Date Patient Seen: 12/08/24 Time Patient Seen: 08:10 Interval history: Patient seen in follow-up of abdominal pain C difficile colitis. Patient feeling slightly better today requiring less pain medicine. Feeling like he might be able to eat a little more. Still having diarrhea. Little less. No blood. Exam Vital Signs (past 8 hours): Oxygen Delivery Method Room Air Oxygen Flow Rate 0 Narrative Exam Narrative: Alert male lying in bed in no acute distress Lungs are clear heart is regular rate and rhythm abdomen is flat tenderness now is limited only to the left lower quadrant. No rebound guarding or masses. Objective Labs 12/08/24 06:10 12/08/24 06:10 Labs: Laboratory Results - last 24 hr 12/08/24 06:10 WBC 12.3 H RBC 2.96 L Hgb 8.1 L Hct 24.8 L MCV 83.8 MCH 27.2 MCHC 32.5 RDW 14.0 Plt Count 456 H Neut % (Auto) 72.1 Lymph % (Auto) 12.7 L [place] % (Auto) 13.7 Eos % (Auto) 1.3 L Baso % (Auto) 0.2 Neut # (Auto) 8900 H Lymph # (Auto) 1600 [place] # (Auto) 1700 H Eos # (Auto) 200 Baso # (Auto) 0 ESR 106 H Sodium 138 Potassium 4.0 Chloride 107 Carbon Dioxide 27 BUN 3 L Creatinine 0.93 Estimated GFR > 60 BUN/Creatinine Ratio 3.2 L Glucose 95 Calcium 8.6 Total Bilirubin 0.4 AST 20 ALT 30 Alkaline Phosphatase 86 C-Reactive Protein 19.1 H Total Protein 6.0 L Albumin 2.8 L Globulin 3.2 Albumin/Globulin Ratio 0.9 L PFSH Medical History Supralevator abscess Social History marital status: unmarried,single details: Pt. lives with his parents. household members: family occupational status: unemployed Smoking Status: Never smoker alcohol intake: never Assessment & Plan Assessment & Plan narrative: C diff colitis. Questions whether this is all C difficile. Discussed with human resources file clerk yesterday goal is to cool down his C diff and see what happens. Will need outpatient colonoscopy for sure. Hopefully he will settle down over the next 48 hours. And will follow from there. Anemia. Certainly probably related to his diarrhea and colitis but a large part maybe secondary to the fluids we have been giving him. Will have to see. He has not been having a lot of blood that he can see. We will recheck a.m.. Discontinue fluids and see how he does. Dehydration. Resolved. Taking p.o.. Will increase diet and see how he does. Abdominal pain. Still present but improved. Expect secondary all to his C diff colitis. Or possible Crohn's. Off antibiotics at this time will follow. Continue pain meds hopefully we can discontinue those in the next couple of days. See how he does. History of fistulas. White count still increased mildly. Do not want to do antibiotics at this time secondary to his C diff. question whether or not this is related to Crohn's disease will have to see. Code status full. DVT prophylaxis on Lovenox Disposition. Will be here for some time. Unknown. Will see how he responds. Will try to get outpatient approval of his fidaxomicin Time-Based Coding :: [TOTAL MINUTES] spent with patient and on the chart (including review of chart, obtaining history, exam, reviewing outside data, placing orders, documenting exam and treatment plan, and counseling patient) on [DATE]. Quality VTE Deep Vein Thrombosis/Pulmonary Embolism Present on Admission: No
[2024-12-08] MEDS: ACETAMINOPHEN 325 MG TABLET 650 MG PO ×2 (08:50→20:54)
[2024-12-08] MEDS: ENOXAPARIN 40 MG/0.4 ML SYRINGE SUBCUT (08:50)
[2024-12-08] MEDS: FIDAXOMICIN 200 MG TABLET PO ×2 (08:51→20:55)
[2024-12-08] MEDS: LACTOBACILLUS ACIDOPHILUS TABLET 1 EACH PO ×3 (08:51→18:03)
--- NOTE | 2024-12-08 09:07 | CM.DANOTE ---
Initial DCP Assessment Note Pt is a 23 yo male, resident of [facility], previous surgery for fistula on nov 16. Presents with abd pain, cdiff+ long history of severe abd pain, Crohn's disease suspected. PCP: Alan Trevino Payer: Orestes DAVIS Reviewed chart, pt lives independently with his parents. Medical care continues, diet will be advanced slowly according to Dr Trevino. No barriers identified at this time to patient's safe discharge home w/family to assist; close outpatient f/u recommended. CM team will plan to follow clinical course closely in case any DC needs or concerns arise. DENNIS Forrest Discharge Planning/Care Management CM Discharge Assessment Start: 12/08/24 08:55 Freq: Status: Active Protocol: Document 12/08/24 08:56 LYNSEY (Rec: 12/08/24 09:06 LYNSEY [id number]) Discharge Planning Assessment Assigned Hot Die Press Operator DENNIS Martinez DPOA/Assigned Designee Name mother Lujan Contact Information [phone] Advance Directives? No History Provided By Medical Record Has Patient been admitted in last 30 Yes days? Comment SDC 11/16 ER 11/25 ER 12/05 INPT 12/06 Prior Living Arrangements House Household Members family Type of transporation used prior to Drives own vehicle admit Independent with ADL's Yes Is patient alert and oriented? Yes Barriers to Discharge No Discharge Plan Home Transportation Arrangement Family Referrals Initiated None needed Additional Comment Following clinical course closely.
[2024-12-08] MEDS: LOPERAMIDE 2 MG CAPSULE PO ×2 (10:05→18:03)
[2024-12-08 10:08] VITALS: BP 135/64; PULSE 73; RESP 16; TEMP 36.4; O2SAT 94
--- NOTE | 2024-12-08 15:37 | DIET.PN1 ---
Dietary Progress Note Assessment: F/u with pt regarding diet tolerance. Tolerated soup at lunch. Is working on protein supplementation. Initially it caused abd pain, pt suspects he drank it too fast. Discussed other protein/ONS options we have if pt unable to tolerate protein smoothies. Discussed better tolerated food options while experiencing diarrhea. Encouraged best tolerated protein supplement/ONS options TID-BID while appetite improves. Ht: 177.8 cm Wt: 91 kg BMI: 28.8 UBW: Last BM: 12/07/24 (12/07/24 18:36) MNA: 9 Hunter Score: 23 Diet: 12/06/24 Breakfast Clear Liquid Diet Diet Modifications: 12/08/24 Lunch General (Regular) Diet Diet Modifications: Advance as tolerated Food Texture: Level 7 - Regular Liquid Consistency: Level 0 - Thin Nutrition Percent Meal Consumed 100% 12/08/24 14:07 Labs: RBC 2.96 X10^6/uL (4.5-5.9) L 12/08/24 06:10 Hgb 8.1 g/dL (13.5-17.5) L 12/08/24 06:10 Hct 24.8 % (41-53) L 12/08/24 06:10 Creatinine 0.93 mg/dL (0.66-1.25) 12/08/24 06:10 Electronically Signed by: Nela Block 12/08/24 15:37 Clinical Dietitian [address] [address]
[2024-12-08 16:11] LABS: C difficie Toxins A and B, EIA Negative (Negative)
[2024-12-08 19:30] VITALS: O2SAT 98
[2024-12-08 20:46] VITALS: BP 125/75; PULSE 95; RESP 16; TEMP 39.2; O2SAT 98
[2024-12-08 20:54] VITALS: TEMP 39.2
[2024-12-08 21:50] VITALS: TEMP 37.3
[2024-12-09] VITALS (7 sets, daily range): BP systolic 122–132; BP diastolic 67–77; PULSE 76–91; RESP 14–17; TEMP 37.2–37.9; O2SAT 97–99
[2024-12-09] MEDS: MORPHINE 2 MG/ML INJ IV ×6 (03:24→23:11)
[2024-12-09] MEDS: LOPERAMIDE 2 MG CAPSULE PO ×3 (04:07→23:11)
[2024-12-09 05:59] LABS: Add Manual Diff / Slide Review NO; Basophils Absolute Auto 0 /uL (0-100); Basophils Percent Auto 0.2 % (0-2); Eosinophils Absolute Auto 100 /uL (0-450); Hematocrit 30.8 % (41-53); Lymphocytes Absolute Auto 1100 /uL (1100-4500); Mean Corpuscular HGB Conc 32.3 % (30-36); Mean Corpuscular Hemoglobin 27.1 PG (26-34); Monocytes Absolute Auto 1600 /uL (0-900); Monocytes Percent Auto 13.6 % (3-14); Neutrophils Absolute Auto 9000 /uL (1500-7000); Neutrophils Percent Auto 76.2 % (50-75); Platelet Count 447 X10^3/uL (150-400); Red Blood Cell Count 3.67 X10^6/uL (4.5-5.9); Red Cell Distribution Width 14.1 % (11.6-14.8); White Blood Cell Count 11.8 X10^3/uL (4.5-11.0)
[2024-12-09] MEDS: ONDANSETRON 4 MG/2 ML INJ IV ×3 (09:04→23:11)
[2024-12-09] MEDS: ACETAMINOPHEN 325 MG TABLET 650 MG PO ×3 (09:05→21:44)
[2024-12-09] MEDS: TIZANIDINE 4 MG TABLET PO ×2 (09:06→21:44)
[2024-12-09] MEDS: FIDAXOMICIN 200 MG TABLET PO ×2 (09:06→20:06)
[2024-12-09] MEDS: LACTOBACILLUS ACIDOPHILUS TABLET 1 EACH PO ×3 (09:06→17:51)
[2024-12-09] MEDS: ENOXAPARIN 40 MG/0.4 ML SYRINGE SUBCUT (09:07)
--- NOTE | 2024-12-09 09:26 | PM.PN.IH.1 ---
Subjective Subjective Date Patient Seen: 12/09/24 Time Patient Seen: 09:26 Interval history: Patient of Dr. Trevino admitted with presumed C diff colitis. Patient was certainly with some element of a almost mckeon colitis but continues to test positive for C diff. Uncertain whether there is additional infectious etiologies involved. He was being aggressively treated with oral meds for his C diff colitis having already failed vancomycin. This is in the setting of somewhat recent surgery for perirectal abscess etcetera which complicates things. Still not 100% convinced he was not so some sort of inflammatory bowel disease behind this as well In any event after starting treatment as well as being rehydrated etcetera he was improved yesterday as per Dr. Trevino Overnight had fever to 102 but 100.2 when last checked. White blood cell count dropped some. Patient reports still feeling improved over time of admission as well as a bit improved from yesterday. Still having abdominal pain and nausea those are his biggest symptoms. Still having very frequent loose watery stool. No change in discharge from the perirectal area that was operated on Exam Vital Signs (past 8 hours): - 12/09/24 08:00 12/09/24 09:05 Temperature 100.1 F H 100.2 F H Pulse Rate 88 Respiratory Rate 17 Blood Pressure 125/73 Pulse Oximetry 98 Oxygen Flow Rate 0 Oxygen Delivery Method Room Air Oxygen Flow Rate 0 Narrative Exam Narrative: Abdomen-positive to hyperactive bowel tones no rebound or guarding Objective Labs 12/09/24 05:10 12/08/24 06:10 Labs: Laboratory Results - last 24 hr 12/06/24 12/09/24 21:08 05:10 WBC 11.8 H RBC 3.67 L Hgb 10.0 L Hct 30.8 L MCV 84.0 MCH 27.1 MCHC 32.3 RDW 14.1 Plt Count 447 H Neut % (Auto) 76.2 H Lymph % (Auto) 9.0 L [place] % (Auto) 13.6 Eos % (Auto) 1.0 L Baso % (Auto) 0.2 Neut # (Auto) 9000 H Lymph # (Auto) 1100 [place] # (Auto) 1600 H Eos # (Auto) 100 Baso # (Auto) 0 C. diff Toxin A&B (EIA) Negative [facility] Medical History Supralevator abscess Social History marital status: unmarried,single details: Pt. lives with his parents. household members: family occupational status: unemployed Smoking Status: Never smoker alcohol intake: never Assessment & Plan Assessment & Plan narrative: 1. C diff colitis-continue on the fidaxomicin. Given the fever still some concern about some other untreated infection specially around his surgical site etcetera. It appear surgery recommended IV antibiotics with Cipro and Flagyl and indeed patient receive that his first day of admission but with his C diff being strongly positive as it is as well as his clinical symptoms being that of the poorly controlled diarrhea seems much more likely C diff is the primary culprit here. Given slight improvement in white blood cell count and nontoxic appearance on exam I am going to continue to hold off on the Cipro and Flagyl for now. Will trying get culture from the area of his surgery previously to make sure we are not missing some sort of other infection. Consider formally consulting Dr. Carbajal, the general surgeon who saw him in the ER as well I agree, patient would best be served by seeing a colorectal surgeon, but that he was not possible at this hospital at this time. Given his overall relative improvement despite the ups and Downs I am not convinced that there is enough here to try and transfer him to an alternative facility especially given the lack of availability in the local area (based on other patients who we tried to transfer recently), will keep him here for now and continue treatment as noted 2. Anemia-numbers stable as of this morning improved over yesterday. Obviously still some degree of fluid shifts ongoing given the up and down with the hemoglobin hematocrit 3. Dehydration/fluid depletion-IV fluids discontinued yesterday. That is far supporting himself orally. Time-Based Coding :: [TOTAL MINUTES] spent with patient and on the chart (including review of chart, obtaining history, exam, reviewing outside data, placing orders, documenting exam and treatment plan, and counseling patient) on [DATE]. Quality VTE Deep Vein Thrombosis/Pulmonary Embolism Present on Admission: No [facility] PROFEE Blood Or Blood Bank Technician Document charge(s): Yes Charge Codes Subsequent inpatient/observation care: [id number]
--- NOTE | 2024-12-09 10:58 | CM.DPNOTE ---
DCP note RN APPEALS reviewed EMR per chart review/RN report, pt has some low grade fever at the moment. continues to be on PO meds, getting IV fluids still. No barriers identified at this time to patient's safe discharge home w/family to assist; close outpatient f/u recommended. CM team will plan to follow clinical course closely in case any DC needs or concerns arise. DENNIS Madden
--- NOTE | 2024-12-09 19:25 | PC.NURSE ---
Dr. Knutson called, at the time the ceci anal wound was cultured there was no drain seen. The pt reports it looks like a rubber band. Dr. Knutson notified it was not seen. Pt is still running a temp around [address] Knutson reports the he will speak with pt's surgeon tomorrow.
--- NOTE | 2024-12-09 22:12 | PC.NURSE ---
Patient c/o pain to abdomen and perianal region adequately controlled with analgesic. Temp 100.2, Tylenol given. Patient reports last BM (watery) was before 1400. Perianal opening covered with 4x4 gauze with small amount of sero-sang drainage, patient self cares for this. This RN cared for patient yesterday and observed what appeared to be a maroon, rubber band coming from the perianal opening. This RN did not see any band today. Per report, day RN did not observe any drain and notified MD, see previous nursing note.
[2024-12-10] MEDS: MORPHINE 2 MG/ML INJ IV ×6 (03:37→23:25)
[2024-12-10 04:10] LABS: Add Manual Diff / Slide Review NO; Basophils Absolute Auto 0 /uL (0-100); Basophils Percent Auto 0.2 % (0-2); Eosinophils Absolute Auto 200 /uL (0-450); Eosinophils Percent Auto 1.8 % (2-4); Hemoglobin 10.5 g/dL (13.5-17.5); Lymphocytes Absolute Auto 1300 /uL (1100-4500); Lymphocytes Percent Auto 12.6 % (25-40); Mean Corpuscular HGB Conc 32.8 % (30-36); Mean Corpuscular Hemoglobin 27.4 PG (26-34); Mean Corpuscular Volume 83.5 fL (80-100); Monocytes Absolute Auto 1600 /uL (0-900); Monocytes Percent Auto 15.7 % (3-14); Neutrophils Absolute Auto 7100 /uL (1500-7000); Neutrophils Percent Auto 69.7 % (50-75); Platelet Count 455 X10^3/uL (150-400); Red Blood Cell Count 3.83 X10^6/uL (4.5-5.9); Red Cell Distribution Width 14.2 % (11.6-14.8); White Blood Cell Count 10.2 X10^3/uL (4.5-11.0)
[2024-12-10 04:28] LABS: BUN Creatinine Ratio 6.9 (6-22); Blood Urea Nitrogen 7 mg/dL (9-20); Calcium 8.3 mg/dL (8.4-10.2); Carbon Dioxide 27 mmol/L (22-32); Chloride 101 mmol/L (98-107); Estimated Glomerular Filt Rate > 60 mL/min (>60); Glucose 99 mg/dL (70-100); HEMOLYSIS < 15 (0-50); Potassium 3.7 mmol/L (3.4-5.1); Sodium 137 mmol/L (137-145)
[2024-12-10 07:45] VITALS: O2SAT 97
[2024-12-10 08:00] VITALS: BP 136/77; PULSE 98; RESP 16; TEMP 38.2; O2SAT 96
[2024-12-10] MEDS: ONDANSETRON 4 MG/2 ML INJ IV ×3 (08:48→23:24)
[2024-12-10] MEDS: LACTOBACILLUS ACIDOPHILUS TABLET 1 EACH PO ×3 (08:48→16:57)
[2024-12-10] MEDS: FIDAXOMICIN 200 MG TABLET PO ×2 (08:48→20:20)
[2024-12-10] MEDS: ENOXAPARIN 40 MG/0.4 ML SYRINGE SUBCUT (08:48)
--- NOTE | 2024-12-10 09:59 | P.PN_ITS ---
Subjective Subjective Date Patient Seen: 12/10/24 Time Patient Seen: 09:59 Interval history: Patient is still febrile overnight minimally, improved over previous 24 hours White blood cell count continues to improve Culture obtained from area of previous perirectal surgery, thus far no growth Patient reports feeling little bit better. Maybe some slowing of stool frequency maybe some more viscosity to the liquid stool. Abdomen definitely feels like something changed for the better. Only getting pain and nausea just before he needs to have a bowel movement at this point he says Still basically uncontrollable though had accident was not able to make it to the restroom yesterday which is of course quite distressing Exam Vital Signs (past 8 hours): - 12/10/24 08:00 Temperature 100.7 F H Pulse Rate 98 H Respiratory Rate 16 Blood Pressure 136/77 Pulse Oximetry 96 Oxygen Flow Rate 0 Oxygen Delivery Method Room Air Oxygen Flow Rate 0 Objective Labs 12/10/24 03:45 12/10/24 03:45 Labs: Laboratory Results - last 24 hr 12/10/24 03:45 WBC 10.2 RBC 3.83 L Hgb 10.5 L Hct 32.0 L MCV 83.5 MCH 27.4 MCHC 32.8 RDW 14.2 Plt Count 455 H Neut % (Auto) 69.7 Lymph % (Auto) 12.6 L [place] % (Auto) 15.7 H Eos % (Auto) 1.8 L Baso % (Auto) 0.2 Neut # (Auto) 7100 H Lymph # (Auto) 1300 [place] # (Auto) 1600 H Eos # (Auto) 200 Baso # (Auto) 0 Sodium 137 Potassium 3.7 Chloride 101 Carbon Dioxide 27 BUN 7 L Creatinine 1.01 Estimated GFR > 60 BUN/Creatinine Ratio 6.9 Glucose 99 Calcium 8.3 L [facility] Medical History Supralevator abscess Social History marital status: unmarried,single details: Pt. lives with his parents. household members: family occupational status: unemployed Smoking Status: Never smoker alcohol intake: never Assessment & Plan Assessment & Plan narrative: 1. C diff colitis-continue on the fidaxomicin. Pleased that has fever curve seems to be improving. White blood cell count also improved. Patient clinically seems to be very slowly improving which is actually not that unusual with C diff colitis in my experience especially the very serious cases like this. I agree, patient would best be served by seeing a colorectal surgeon, but that he was not possible at this hospital at this time. Given his overall relative improvement despite the ups and Downs I am not convinced that there is enough here to try and transfer him to an alternative facility especially given the lack of availability in the local area (based on other patients who we tried to transfer recently), will keep him here for now and continue treatment as noted 2. Anemia-numbers stable as of this morning improved over yesterday. Obviously still some degree of fluid shifts ongoing given the up and down with the hemoglobin hematocrit 3. Dehydration/fluid depletion-continue off IV fluids for now. Numbers look okay. 4. Disposition-if patient has continued slow but steady improvement could consider discharge home in the next 24-48 hours to continue the fidaxomicin. Would strongly recommend outpatient colorectal surgery consultation as well Time-Based Coding :: [TOTAL MINUTES] spent with patient and on the chart (including review of chart, obtaining history, exam, reviewing outside data, placing orders, documenting exam and treatment plan, and counseling patient) on [DATE]. Quality VTE Deep Vein Thrombosis/Pulmonary Embolism Present on Admission: No [facility] PROFEE Bezel Cutter Document charge(s): Yes Charge Codes Subsequent inpatient/observation care: [id number]
[2024-12-10] MEDS: LOPERAMIDE 2 MG CAPSULE PO (11:25)
[2024-12-10 13:30] VITALS: TEMP 37.3
[2024-12-10 19:00] VITALS: O2SAT 96
[2024-12-11] VITALS (7 sets, daily range): BP systolic 120–132; BP diastolic 62–73; PULSE 73–97; RESP 17–20; TEMP 37–38.2; O2SAT 95–98
[2024-12-11] MEDS: MORPHINE 2 MG/ML INJ IV ×5 (06:36→22:58)
--- NOTE | 2024-12-11 08:26 | P.PN_ITS ---
Subjective Subjective Date Patient Seen: 12/11/24 Time Patient Seen: 08:27 Interval history: Patient seen in follow-up C diff and anal fistula. Dehydration. Anemia. Overall patient feeling slightly better. Diarrhea may be slightly decreased. Still having abdominal pain. Still requiring IV medicine. Not eating much. No other changes Exam Vital Signs (past 8 hours): Oxygen Delivery Method Room Air Oxygen Flow Rate 0 Narrative Exam Narrative: Alert male in no acute distress Lungs are clear heart is regular rate and rhythm abdomen is soft positive bowel sounds decreased tenderness. Still lower quadrant tenderness no rebound or guarding Objective Labs 12/10/24 03:45 12/10/24 03:45 [facility] Medical History Supralevator abscess Social History marital status: unmarried,single details: Pt. lives with his parents. household members: family occupational status: unemployed Smoking Status: Never smoker alcohol intake: never Assessment & Plan Assessment & Plan narrative: Wounds C diff colitis. Patient seems to be improved. Slowly. Still has a temperature of 100.7?. Not eating much. Still requiring IV pain meds. Just going to be a slow process. Will continue fidaxomicin. IV pain support. If fever curve improves over the next 24 hours and resolves will switch to oral pain meds see if we can get him taking a little more food and switch to p.o. meds. Fistula. Anal. Will discuss with surgeon. I think it is improving. I do not think he needs any antibiotics. I do not think his fever is coming from that I think it is from the C diff but would like to know really about follow-up. If he needs to see colorectal surgeon versus wastewater plant civil engineer. Versus GI which she is going to need anyway. Will see how things go. Discussed with Dr. Escobar. Anemia. Seems to be stable. Will continue to follow. Recheck a.m.. Probably mostly secondary to dehydration and fluid resuscitation Dehydration. Resolved essentially. Nutrition. We will see how he does. He has not eating enough now. May need to have dietitian, and see if we can get better intake. Disposition. Hopefully by Wednesday we can get him home will see how things go. Time-Based Coding :: [TOTAL MINUTES] spent with patient and on the chart (including review of chart, obtaining history, exam, reviewing outside data, placing orders, documenting exam and treatment plan, and counseling patient) on [DATE]. Quality VTE Deep Vein Thrombosis/Pulmonary Embolism Present on Admission: No
[2024-12-11] MEDS: FIDAXOMICIN 200 MG TABLET PO ×2 (08:56→20:48)
[2024-12-11] MEDS: LACTOBACILLUS ACIDOPHILUS TABLET 1 EACH PO ×3 (08:56→17:27)
[2024-12-11] MEDS: ENOXAPARIN 40 MG/0.4 ML SYRINGE SUBCUT (08:56)
--- NOTE | 2024-12-11 10:29 | DIET.PN1 ---
Dietary Progress Note Assessment: Met with pt at bedside. Tolerated white toast and a few bites of fruit this morning. Pt still having some diarrhea and feeling bloating/bubbly stomach. Still has low appetite. Discussed what ONS he would be most likely to tolerate for lunch based on previous ONS trials Wednesday and Wednesday. Added Ensure clear ONS. Discussed some lunch options that may be better tolerated. Will f/u on PO tolerance. Ht: 177.8 cm Wt: 91 kg BMI: 28.8 Last BM: 12/10/24 (12/10/24 08:00) MNA: 9 Hunter Score: 20 Diet: 12/08/24 Lunch General (Regular) Diet Diet Modifications: Advance as tolerated Food Texture: Level 7 - Regular Liquid Consistency: Level 0 - Thin Nutrition Percent Meal Consumed 0% 12/09/24 18:00 Percent Meal Consumed 25% 12/09/24 13:00 Labs: RBC 3.83 X10^6/uL (4.5-5.9) L 12/10/24 03:45 Hgb 10.5 g/dL (13.5-17.5) L 12/10/24 03:45 Hct 32.0 % (41-53) L 12/10/24 03:45 Creatinine 1.01 mg/dL (0.66-1.25) 12/10/24 03:45 Electronically Signed by: Nela Block 12/11/24 10:29 Clinical Dietitian [address] [id number]
--- NOTE | 2024-12-11 10:46 | CM.DPNOTE ---
DCP note ASSEMBLER BONDING reviewed EMR. Per provider note, MAUREEN 12/13. Pt still having fevers and not eating too much at this time. no new needs identified per chart review/RN report. No barriers identified at this time to patient's safe discharge home w/family to assist; close outpatient f/u recommended. CM team will plan to follow clinical course closely in case any DC needs or concerns arise. DENNIS Madden
[2024-12-11] MEDS: ONDANSETRON 4 MG/2 ML INJ IV ×2 (11:43→22:57)
--- NOTE | 2024-12-11 12:10 | PM.CN.IH.1 ---
History of Present Illness Consult details Date Patient Seen: 12/11/24 Time Patient Seen: 12:10 Chief complaint: Abd Pain Reason for consult: Postop fistula exam Narrative: 23-year-old white male, proximally 3 weeks status post drainage of supra levator fistula with seton placement, healing as expected, but had been on antibiotics for 6 or 7 weeks prior to presentation and drainage and developed Clostridium difficile infection. He states his perianal pain is much improved since before surgery. CT scan showed some thickening of the sigmoid and cecum near the appendix in conjunction with his positive C diff. Meds Home Medications and Allergies Home Medications Medication Instructions Recorded Confirmed Type docusate calcium 240 mg capsule 240 mg PO BID #60 caps 11/16/24 12/06/24 Rx ondansetron HCl 8 mg tablet 8 mg PO Q8H PRN nausea and 11/16/24 12/06/24 Rx vomiting #30 tabs oxycodone 5 mg tablet 5 mg PO Q6H PRN severe pain (scale 11/16/24 12/06/24 Rx score 7-10) #14 tabs polyethylene glycol 3350 17 17 g PO DAILY #238 grams 11/16/24 12/06/24 Rx gram/dose oral powder (ClearLax) tizanidine 4 mg capsule 4 mg PO Q8H PRN rectal discomfort 11/16/24 12/06/24 Rx #90 caps loperamide 2 mg capsule 2 mg PO Q6H PRN loose stool #120 11/28/24 12/06/24 Rx caps psyllium husk 3 gram/3 gram oral 17 g PO DAILY #340 grams 11/28/24 12/06/24 Rx powder ciprofloxacin HCl 500 mg tablet 500 mg PO BID 10 days #20 tabs 12/05/24 12/06/24 Rx metronidazole 500 mg tablet 500 mg PO TID #30 tabs 12/05/24 12/06/24 Rx Allergies Allergy/AdvReac Type Severity Reaction Status Date / Time No Known Drug Allergies Allergy Unverified 11/16/24 15:30 Review of Systems Review of Systems ROS: Yes All systems reviewed with the patient and are negative except as otherwise documented Exam Vital Signs (past 8 hours): - 12/11/24 08:00 Temperature 99.0 F Pulse Rate 84 Respiratory Rate 17 Blood Pressure 120/71 Pulse Oximetry 95 Oxygen Flow Rate 0 Oxygen Delivery Method Room Air Oxygen Flow Rate 0 Narrative Exam Narrative: Gen: NAD, sitting comfortably in bed, appears well HEENT: Sclera are anicteric, head is normocephalic and atraumatic, trachea is midline. CV: RRR, no JVD Resp: clear to auscultation bilaterally, equal chest wall movement bilaterally Abd: soft, nontender, normoactive bowel sounds Ext: no edema, full range of motion Neuro: Cranial nerves II-XII grossly intact, no focal deficits Skin: No erythema or ecchymosis Perianal exam shows the seton in place with scant drainage on the dressing Objective Labs 12/10/24 03:45 12/10/24 03:45 [facility] Medical History Supralevator abscess Social History marital status: unmarried,single details: Pt. lives with his parents. household members: family occupational status: unemployed Tobacco & Substance Use Smoking Status: Never smoker alcohol intake: never Assessment & Plan Assessment and plan (1) Supralevator abscess: Status: Acute (2) Colitis: Status: Acute Assessment & Plan narrative: Discussed with Dr. Trevino. I do not feel the patient needs anymore antibiotics targeted toward the supralevator abscess that seems to be draining well. All treatment can focus on the C diff colitis. With him having an I and D a year before, and now a fistula with multiple draining tracts, there is a chance that he may have inflammatory bowel disease. I would recommend that after the C diff resolves, he get evaluated by either a algology teacher or colorectal surgeon who specializes in inflammatory bowel disease. Ideally would consider steroids, but not in the setting of active infection. Time-Based Coding :: [TOTAL MINUTES] spent with patient and on the chart (including review of chart, obtaining history, exam, reviewing outside data, placing orders, documenting exam and treatment plan, and counseling patient) on [DATE]. PROFEE Charge Codes Inpatient or Observation consultation: [id number] ([id number] post-op global)
[2024-12-11] MEDS: ACETAMINOPHEN 325 MG TABLET 650 MG PO (17:27)
--- NOTE | 2024-12-11 17:51 | PC.NURSE ---
Addendum entered by Hanane Jefferson R.N. 12/12/24 05:23: Iv still flushing but this RN feels that is infiltrated, pt still declined this RN to removed IV. Spoke to Dr. Trevino this am and was able to obtain an order por oral/anitnausea pain medication. Original Note: Patients temp 100.8. tylenol given. He has had morphine iv x2 and was up to use the bathroom and had 1 bm. Resting now. Tolerating food.
--- NOTE | 2024-12-11 23:49 | PC.NURSE ---
Pt IV is flushing but is slightly red. IV site cleaned and new transparent dressing applied. Tried to start a new iv on this pt but unsuccessful. Spoke to patient about having an ultrasound guided iv started which pt declined. pt also declined having another RN restarting his IV. Pt stated I am going to be starting oral medications tomorrow, so I'll fine.
[2024-12-12] MEDS: MORPHINE 2 MG/ML INJ IV (05:00)
[2024-12-12] MEDS: ONDANSETRON 4 MG/2 ML INJ IV (05:00)
[2024-12-12] MEDS: OXYCODONE/ACETAMINOPHEN 5/325 TABLET 1 TAB PO ×3 (06:27→20:29)
[2024-12-12] MEDS: ONDANSETRON 4 MG ODT SL (06:28)
[2024-12-12 06:30] LABS: Add Manual Diff / Slide Review NO; Basophils Absolute Auto 0 /uL (0-100); Basophils Percent Auto 0.3 % (0-2); Eosinophils Absolute Auto 200 /uL (0-450); Eosinophils Percent Auto 1.4 % (2-4); Hematocrit 30.4 % (41-53); Lymphocytes Absolute Auto 1300 /uL (1100-4500); Lymphocytes Percent Auto 10.6 % (25-40); Mean Corpuscular HGB Conc 32.7 % (30-36); Mean Corpuscular Volume 82.5 fL (80-100); Monocytes Absolute Auto 1700 /uL (0-900); Monocytes Percent Auto 13.9 % (3-14); Neutrophils Absolute Auto 8800 /uL (1500-7000); Neutrophils Percent Auto 73.8 % (50-75); Platelet Count 478 X10^3/uL (150-400); Red Blood Cell Count 3.69 X10^6/uL (4.5-5.9); Red Cell Distribution Width 14.1 % (11.6-14.8)
[2024-12-12 06:43] LABS: Alanine Aminotransferase 101 IU/L (<50); Albumin 3.1 g/dL (3.5-5.0); Alkaline Phosphatase 105 U/L (38-126); Aspartate Aminotransferase 106 IU/L (17-59); BUN Creatinine Ratio 5.3 (6-22); Bilirubin Total 0.6 mg/dL (0.2-1.3); Blood Urea Nitrogen 5 mg/dL (9-20); Calcium 8.5 mg/dL (8.4-10.2); Carbon Dioxide 27 mmol/L (22-32); Chloride 98 mmol/L (98-107); Estimated Glomerular Filt Rate > 60 mL/min (>60); Globulin 3.2 g/dL (1.7-4.1); Glucose 107 mg/dL (70-100); HEMOLYSIS < 15 (0-50); Potassium 3.4 mmol/L (3.4-5.1); Sodium 135 mmol/L (137-145); Total Protein 6.3 g/dL (6.3-8.2)
[2024-12-12 07:00] VITALS: BP 135/76; PULSE 87; RESP 14; TEMP 36.7; O2SAT 98; O2SAT 99
--- NOTE | 2024-12-12 08:27 | PM.PN.1 ---
Subjective Subjective Date Patient Seen: 12/12/24 Interval history: Patient is a 23-year-old male being seen for follow-up of colitis. Presumed C diff. Overall maybe slightly better today only had 3 bowel movements yesterday. Fever curve continues to slowly come down although still 100.8 last night. No other changes. Slightly less nausea slightly less pain. No blood in his stool. Exam Vital Signs (past 8 hours): Oxygen Delivery Method Room Air Oxygen Flow Rate 0 Narrative Exam Narrative: Alert male lying in bed in no acute distress Lungs are clear heart is regular rate and rhythm abdomen is soft positive bowel sounds mild tenderness in the lower quadrant Objective Labs 12/12/24 06:10 12/12/24 06:10 Labs: Laboratory Results - last 24 hr 12/12/24 06:10 WBC 12.0 H RBC 3.69 L Hgb 10.0 L Hct 30.4 L MCV 82.5 MCH 27.0 MCHC 32.7 RDW 14.1 Plt Count 478 H Neut % (Auto) 73.8 Lymph % (Auto) 10.6 L [place] % (Auto) 13.9 Eos % (Auto) 1.4 L Baso % (Auto) 0.3 Neut # (Auto) 8800 H Lymph # (Auto) 1300 [place] # (Auto) 1700 H Eos # (Auto) 200 Baso # (Auto) 0 Sodium 135 L Potassium 3.4 Chloride 98 Carbon Dioxide 27 BUN 5 L Creatinine 0.95 Estimated GFR > 60 BUN/Creatinine Ratio 5.3 L Glucose 107 H Calcium 8.5 Total Bilirubin 0.6 AST 106 H ALT 101 H Alkaline Phosphatase 105 Total Protein 6.3 Albumin 3.1 L Globulin 3.2 Albumin/Globulin Ratio 1.0 [facility] Medical History Supralevator abscess Social History marital status: unmarried,single details: Pt. lives with his parents. household members: family occupational status: unemployed Smoking Status: Never smoker alcohol intake: never Assessment & Plan Assessment & Plan narrative: C difficile colitis. Maybe slightly improved. Still with slight fever. Clinically mildly improve. Eating slightly better with slightly less nausea. Switch to oral pain meds this morning. White count stable. At this point still concerned about possible Crohn's disease along with C diff but do not want add steroids if we can avoid it. Will need gastroenterology consult. At this point will see how he does with oral pain meds and oral intake today. If stable discharge tomorrow. Anal fistula and abscess. Appreciate 's input. At this point he feels no further antibiotics are needed. We will continue to follow. But will need referral to Gastroenterology and possible colorectal surgeon. Depending on how it heals. Anemia slightly down. But overall stable. No evidence of blood loss. Will follow Dehydration. Resolved. Follow-up as needed. Nutrition. Will see how it goes. Hopefully today it will improve and will follow Disposition. Hopefully discharge tomorrow depending on how things go. Will have him call his mom and see if his prescription comes through for his fidaxomicin and if she can pick that up will go home. Time-Based Coding :: [TOTAL MINUTES] spent with patient and on the chart (including review of chart, obtaining history, exam, reviewing outside data, placing orders, documenting exam and treatment plan, and counseling patient) on [DATE]. Quality VTE Deep Vein Thrombosis/Pulmonary Embolism Present on Admission: No
[2024-12-12] MEDS: ENOXAPARIN 40 MG/0.4 ML SYRINGE SUBCUT (09:51)
[2024-12-12] MEDS: LACTOBACILLUS ACIDOPHILUS TABLET 1 EACH PO ×2 (09:51→12:29)
[2024-12-12] MEDS: FIDAXOMICIN 200 MG TABLET PO ×2 (09:51→20:30)
[2024-12-12] MEDS: POTASSIUM CHLORIDE 20 MEQ TAB 40 MEQ PO (09:52)
--- NOTE | 2024-12-12 12:16 | P.PN_ITS ---
Subjective Subjective Date Patient Seen: 12/12/24 Time Patient Seen: 12:16 Interval history: Patient was slowly improving. Three bowel movements last night Exam Vital Signs (past 8 hours): - 12/12/24 07:00 12/12/24 07:00 Temperature 98.1 F Pulse Rate 87 Respiratory Rate 14 Blood Pressure 135/76 Pulse Oximetry 99 98 Oxygen Delivery Method Room Air Oxygen Flow Rate 0 Oxygen Delivery Method Room Air Oxygen Flow Rate 0 Narrative Exam Narrative: Rectal exam deferred due to comfort. No significant abdominal distention or pain. Objective Labs 12/12/24 06:10 12/12/24 06:10 Labs: Laboratory Results - last 24 hr 12/12/24 06:10 WBC 12.0 H RBC 3.69 L Hgb 10.0 L Hct 30.4 L MCV 82.5 MCH 27.0 MCHC 32.7 RDW 14.1 Plt Count 478 H Neut % (Auto) 73.8 Lymph % (Auto) 10.6 L [place] % (Auto) 13.9 Eos % (Auto) 1.4 L Baso % (Auto) 0.3 Neut # (Auto) 8800 H Lymph # (Auto) 1300 [place] # (Auto) 1700 H Eos # (Auto) 200 Baso # (Auto) 0 Sodium 135 L Potassium 3.4 Chloride 98 Carbon Dioxide 27 BUN 5 L Creatinine 0.95 Estimated GFR > 60 BUN/Creatinine Ratio 5.3 L Glucose 107 H Calcium 8.5 Total Bilirubin 0.6 AST 106 H ALT 101 H Alkaline Phosphatase 105 Total Protein 6.3 Albumin 3.1 L Globulin 3.2 Albumin/Globulin Ratio 1.0 PFSH Medical History Supralevator abscess Social History marital status: unmarried,single details: Pt. lives with his parents. household members: family occupational status: unemployed Smoking Status: Never smoker alcohol intake: never Assessment & Plan Post-op Postoperative Procedures: Incision drainage supralevator abscess Postoperative status: doing well Postoperative plan: routine post-op care Time Spent With Patient Time with patient: less than 15 minutes Quality VTE Deep Vein Thrombosis/Pulmonary Embolism Present on Admission: No
--- NOTE | 2024-12-12 13:39 | CM.DPC ---
DCP Cont. Reviewed EMR and team rounds for status updates. Per provider, pt will need 1-more day inpt prior to being stable enough for home d/c. His family will transport home. No CM needs anticiapted at this time.
--- NOTE | 2024-12-12 16:24 | DIET.PN1 ---
Dietary Progress Note Assessment: Met with pt and mom in room. Tolerated lunch- half a sandwich and large bowl of strawberries (brought from outside hospital) and an ensure enlive/plus Is tolerating regular ONS now. Will do BID to support energy needs while PO intakes are still increasing back to normal. Provided handout on best tolerated foods. Ht: 177.8 cm Wt: 91 kg BMI: 28.8 Last BM: 12/12/24 (12/12/24 05:00) MNA: 9 Hunter Score: 22 Diet: 12/08/24 Lunch General (Regular) Diet Diet Modifications: Advance as tolerated Food Texture: Level 7 - Regular Liquid Consistency: Level 0 - Thin Nutrition Percent Meal Consumed 100% 12/12/24 14:40 Percent Meal Consumed 0% 12/11/24 19:00 Percent Meal Consumed 90 12/11/24 11:08 Labs: RBC 3.69 X10^6/uL (4.5-5.9) L 12/12/24 06:10 Hgb 10.0 g/dL (13.5-17.5) L 12/12/24 06:10 Hct 30.4 % (41-53) L 12/12/24 06:10 Creatinine 0.95 mg/dL (0.66-1.25) 12/12/24 06:10 Electronically Signed by: Nela Block 12/12/24 16:24 Clinical Dietitian [address] [address]
[2024-12-12 19:00] VITALS: O2SAT 98
[2024-12-13 06:18] VITALS: BP 115/66; PULSE 87; RESP 16; TEMP 37; O2SAT 95
[2024-12-13] MEDS: OXYCODONE/ACETAMINOPHEN 5/325 TABLET 1 TAB PO ×2 (06:20→13:40)
[2024-12-13 07:48] LABS: BUN Creatinine Ratio 7.2 (6-22); Blood Urea Nitrogen 7 mg/dL (9-20); Calcium 8.6 mg/dL (8.4-10.2); Carbon Dioxide 28 mmol/L (22-32); Chloride 103 mmol/L (98-107); Estimated Glomerular Filt Rate > 60 mL/min (>60); Glucose 122 mg/dL (70-100); HEMOLYSIS < 15 (0-50); Potassium 3.5 mmol/L (3.4-5.1); Sodium 139 mmol/L (137-145)
[2024-12-13 07:49] LABS: Add Manual Diff / Slide Review NO; Basophils Absolute Auto 0 /uL (0-100); Basophils Percent Auto 0.4 % (0-2); Eosinophils Absolute Auto 200 /uL (0-450); Eosinophils Percent Auto 2.4 % (2-4); Hematocrit 30.8 % (41-53); Hemoglobin 10.2 g/dL (13.5-17.5); Lymphocytes Absolute Auto 1600 /uL (1100-4500); Lymphocytes Percent Auto 16.3 % (25-40); Mean Corpuscular HGB Conc 33.2 % (30-36); Mean Corpuscular Hemoglobin 27.5 PG (26-34); Mean Corpuscular Volume 82.8 fL (80-100); Monocytes Absolute Auto 1400 /uL (0-900); Monocytes Percent Auto 13.8 % (3-14); Neutrophils Absolute Auto 6700 /uL (1500-7000); Neutrophils Percent Auto 67.1 % (50-75); Platelet Count 514 X10^3/uL (150-400); Red Blood Cell Count 3.73 X10^6/uL (4.5-5.9); Red Cell Distribution Width 14.7 % (11.6-14.8)
[2024-12-13 08:00] VITALS: BP 123/78; PULSE 80; RESP 16; TEMP 36.9; O2SAT 97
[2024-12-13] MEDS: LACTOBACILLUS ACIDOPHILUS TABLET 1 EACH PO ×2 (08:28→11:51)
[2024-12-13] MEDS: ENOXAPARIN 40 MG/0.4 ML SYRINGE SUBCUT (08:28)
[2024-12-13] MEDS: FIDAXOMICIN 200 MG TABLET PO (08:28)
[2024-12-13] MEDS: DOCUSATE 100 MG CAPSULE 200 MG PO (08:28)
[2024-12-13 10:00] VITALS: O2SAT 97
[2024-12-13] MEDS: POTASSIUM CHLORIDE 20 MEQ TAB 40 MEQ PO (10:18)
--- NOTE | 2024-12-13 13:05 | PM.DS.1 ---
History of Present Illness History of Present Illness Date Patient Seen: 12/13/24 Time Patient Seen: 13:05 Date of Onset of Symptoms: 11/08/24 Chief complaint: Abd Pain Narrative: Patient is a 23-year-old male with history of previous surgery for fistula on the of last month. Who presents with abdominal pain. Patient has a long history of issues had severe pain for the last several weeks if not months was seen in my clinic and clearly was not specifically normal. There was no other change. Did not look like hemorrhoids which was what patient was looking and thinking. Was referred to surgeons who did a evaluation and had a perirectal abscess with fistula. Had drain placed. Patient was feeling better and then started getting abdominal pain with diarrhea. C diff was positive and patient was treated with vancomycin. [place] better for a few days and then got worse. Continues with abdominal pain diffusely no is not able to eat not throwing up but nauseated. Having frequent bowel movements. No just recently started having blood. He was seen last night in the emergency room it is felt to be colitis he was started on Cipro and Flagyl and just has not been able to do well. Dehydrated. Urinating some. But frequent bowel movements. Is on day 7 of his vancomycin. With no other changes. Patient has a history of hemorrhoid surgery in the 1 year ago which seemed to be good but started having these issues recently. Otherwise healthy male with no major issue. He has had no fevers chills, abdominal pain is pretty severe diffuse maybe worse in the lower quadrants. Has had no hematemesis. Does have a family history of grandfather with unknown inflammatory bowel disease. Otherwise no change. No urinary pain or change Discharge Providers Provider Date of admission: 12/06/24 15:05 Discharge Date: 12/13/24 Primary care physician: Alan Trevino MD Consults: 12/11/24 08:24 Consult to Physician Routine Comment: Consulting Provider: Kapil Escobar Reason for consultation: anal fistula Has provider been notified: Yes Discharge provider: Alan Trevino MD Summary Hospital Course Discharge Diagnosis: C difficile colitis new line Anal fistula and abscess Anemia Dehydration Hospital Course: C difficile colitis. Patient was admitted in the hospital secondary to unable to control his pain with oral medication as outpatient, fevers, voluminous diarrhea and failing outpatient treatment. Patient was admitted started on fidaxomicin orally. He was supported with IV hydration and IV pain medicines. Patient took some time to improve. On day 2 had 102 fever. Was not taking p.o. at all. Continued with IV hydration. Over the course of the next 4 days and on the day of discharge his fever curve completely resolved. He was feeling better. The last 24 hours he has not required IV medication has been on p.o. medication. Diarrhea is decreased to 2-3 per day not as large volume. No blood. Patient will continue fidaxomicin for another 7 days for sure. Unclear whether he will need longer. Due to the fact that he has fistulas and proximal and distal colon involvement the question is whether or not Crohn's disease is part of this. He will need outpatient GI consult and probable colonoscopy. Anal fistula and abscess. Patient had previous surgery 2 weeks prior to admission. He had been on antibiotics started the day before admission Cipro and Flagyl. Those were both discontinued. Consulted surgeon who did the surgery who evaluated him felt as if it was draining well and no evidence of need for current continue antibiotic. He will be followed as an outpatient with surgeon and will get cotton bag sewer consult. At this time no antibiotics required. Certainly would have to have a significant infection if we are going to restart antibiotics with his C diff. Anemia. Patient was noted on day 3 to have a significant anemia. No evidence of significant bleeding or other change. Patient had large volumes of fluids over the course of the 1st 48 hours and it was felt to be secondary to fluids not loss. Will follow as an outpatient. Dehydration. Patient was markedly dehydrated on admission. He was aggressively hydrated over the 1st 48 hours. He is started taking some fluids but really no food and was continued with his IV until 3 days prior to discharge. IV was discontinued at that time and followed. Exam Vital Signs (past 8 hours): - 12/13/24 06:18 12/13/24 08:00 Temperature 98.6 F 98.5 F Pulse Rate 87 80 Respiratory Rate 16 16 Blood Pressure 115/66 123/78 Pulse Oximetry 95 97 Oxygen Flow Rate 0 0 Oxygen Delivery Method Room Air Oxygen Flow Rate 0 Narrative Exam Narrative: Alert young male actually looking much less fatigued and in no acute distress today. Lungs are clear heart is regular rate and rhythm abdomen is soft positive bowel sounds he is got [id number] left lower and right lower quadrant pain but no rebound guarding no masses. Slight diffuse tenderness but much improved from even yesterday Objective Labs 12/13/24 06:40 12/13/24 06:40 Labs: Laboratory Results - last 24 hr 12/13/24 06:40 WBC 10.0 RBC 3.73 L Hgb 10.2 L Hct 30.8 L MCV 82.8 MCH 27.5 MCHC 33.2 RDW 14.7 Plt Count 514 H Neut % (Auto) 67.1 Lymph % (Auto) 16.3 L [place] % (Auto) 13.8 Eos % (Auto) 2.4 Baso % (Auto) 0.4 Neut # (Auto) 6700 Lymph # (Auto) 1600 [place] # (Auto) 1400 H Eos # (Auto) 200 Baso # (Auto) 0 Sodium 139 Potassium 3.5 Chloride 103 Carbon Dioxide 28 BUN 7 L Creatinine 0.97 Estimated GFR > 60 BUN/Creatinine Ratio 7.2 Glucose 122 H Calcium 8.6 PFSH Medical History Supralevator abscess Social History marital status: unmarried,single details: Pt. lives with his parents. household members: family occupational status: unemployed Smoking Status: Never smoker alcohol intake: never Discharge Assessment & Plan Assessment and Plan Assessment: Improved Plan of Treatment: Discharge Discharge Plan Discharge Plan Patient Disposition: Home Discharge orders & Medications Prescriptions: New Dificid 200 mg Tablet 200 mg PO BID Qty: 14 0RF Continued psyllium husk 3 gram/3 gram powder 17 g PO DAILY Qty: 340 11RF loperamide 2 mg capsule 2 mg PO Q6H PRN (Reason: loose stool) Qty: 120 0RF tizanidine 4 mg capsule 4 mg PO Q8H PRN (Reason: rectal discomfort) Qty: 90 0RF Rx Instructions: may cut in half if you feel lightheaded or dizzy oxycodone 5 mg tablet 5 mg PO Q6H PRN (Reason: severe pain (scale score 7-10)) Qty: 14 0RF ondansetron HCl 8 mg tablet 8 mg PO Q8H PRN (Reason: nausea and vomiting) Qty: 30 0RF polyethylene glycol 3350 [ClearLax] 17 gram/dose powder 17 g PO DAILY Qty: 238 0RF Discontinued ciprofloxacin HCl 500 mg tablet 500 mg PO BID 10 Days Qty: 20 0RF metronidazole 500 mg tablet 500 mg PO TID Qty: 30 0RF docusate calcium 240 mg capsule 240 mg PO BID Qty: 60 0RF Follow up/Referrals: Alan Trevino MD [Primary Care Provider] - 12/20/24 9:45 am (Appt:12/20 @ 9:[address] Trevino ) Discharge Health Status Multidrug resistant organism: No MDRO Diet/Activity/Treatments Diet: Diet as Tolerated Activity: As tolerated Skin/Wound/Dressing Care Report to your healthcare provider any signs of infection, such as:: chills, fever, night sweats, increased pain and unusual redness Visit Report/Discharge Packet Instructions: Clostridium difficile Infection, DI for Clostridioides difficile Infection Stand Alone Forms: Patient Portal/API, Stroke Signs & Symptoms Discharge Data Primary Care Provider: Alan Trevino Quality VTE Deep Vein Thrombosis/Pulmonary Embolism Present on Admission: No
== END 2024-12-13 14:00 | disposition home or self-care (01) | DRG 248 ==
PROVIDERS: Internal Medicine; Pharmacist Pharmacist Clinician (PhC)/ Clinical Pharmacy Specialist; Admitting Provider Family Medicine; PCP Family Medicine; Referring Provider Family Medicine; Visit Provider Family Medicine
DX: A04.72 Enterocolitis due to Clostridium difficile, not specified as recurrent (principal); E43 Unspecified severe protein-calorie malnutrition; E86.0 Dehydration; D64.9 Anemia, unspecified; K61.5 Supralevator abscess; Z68.28 Body mass index [BMI] 28.0-28.9, adult; Z98.890 Other specified postprocedural states; K52.9 Noninfective gastroenteritis and colitis, unspecified; Z86.19 Personal history of other infectious and parasitic diseases; Z87.19 Personal history of other diseases of the digestive system
CPT/HCPCS: 36415; 71045; 74177; 80048; 80053; 81001; 82550; 83690; 83735; 83880; 84484; 85025; 85610; 85651; 85730; 86140; 87070; 87205; 87324; 87493; 93005; 93010; 96361; 96365; 96375; 99232; 99284; J1650; J1885; J2270; J2405; J2543; Q9967

== ENCOUNTER → 2025-06-01 15:52 | Outpatient (CLI) | payer OTHER, SELFPAY ==
--- NOTE | 2025-06-01 15:55 | DI.RAD.S_ITS ---
PROCEDURE: XR LUMBAR SPINE MIN 4V INDICATIONS: BACK PAIN TECHNIQUE: 5 views of the lumbar spine were acquired, including bilateral oblique views. COMPARISON: None. FINDINGS: Bones: 5 nonrib-bearing vertebrae are present. There is normal bony alignment. No vertebral body compression fractures. No suspicious bony lesions. Soft tissues: Overlying bowel gas pattern is normal. No suspicious soft tissue calcifications. Oblique images: No pars defects. IMPRESSION: No focal osseous lesions or significant degenerative disease. Dictated by: Tan Baez M.D. on 06/02/2025 at 20:54 Approved by: Tan Baez M.D. on 06/02/2025 at 20:55
== END ==
PROVIDERS: PCP Family Medicine; Referring Provider Family Medicine; Visit Provider Family Medicine
DX: G89.29 Other chronic pain (principal); M54.40 Lumbago with sciatica, unspecified side
CPT/HCPCS: 72110